=== PATIENT | female | born 1995 | race Caucasian/White ===

== ENCOUNTER 2016-11-10 23:11 | Emergency (ER) | payer OTHER ==
[~2016-11-10] VITALS: Ht 160 cm; Wt 81.6 kg
[~2016-11-10 23:11] MED LIST: FLUO20CA25; NORE-79; ONDA-42 SL
--- OUTSIDE RECORDS SUMMARY | 2016-11-10 23:19 | XMS REPORT | Continuity of Care Document ---
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 PCP Insurance Providers Payer Name Policy Number Subscriber Name Relationship [employer] [id number] Power Diaz 18 Self / Same As Patient Advance Directives Directive Response Recorded Date/Time Advance Directives Yes 02/03/15 4:09am Resuscitation Status Full Code 02/03/15 4:09am Problems Medical Problems Problem Onset Date Status Right sided abdominal pain Unknown Active Nausea Unknown Active Right sided abdominal pain Unknown Active Medications Medication Dose Route Sig Days/Qty Instructions Order Date Discontinued Date Status Ondansetron Hcl 4 Mg SL EVERY 4HRS PRN NAUSEA/VOMITING 10 Qty FOR NAUSEA AND VOMITING 02/03/15 Active Social History Social History Problem Response Recorded Date/Time Alcohol Use Occasionally Uses 02/03/2015 4:09am Recreational Drug Use No 02/03/2015 4:09am Recent Foreign Travel No 02/03/2015 4:00am Recent Infectious Disease Exposure No 02/03/2015 4:00am Hospitalization with Isolation Denies 02/03/2015 4:00am Sexually Transmitted Disease No 02/03/2015 4:09am HIV/AIDS No 02/03/2015 4:09am Smoking Status Never a Smoker 02/03/2015 4:09am Query Response Start Date Stop Date Smoking Status Never a Smoker Hospital Discharge Instructions No hospital discharge instructions. Plan of Care No plan of care. Functional Status No functional status results. Allergies, Adverse Reactions, Alerts Allergen Type Severity Reaction Status Last Updated Cephalexin Allergy Unknown Active 02/03/15 Immunizations Name Given Type Tetanus Booster (TDap) Unknown Historical Vital Signs Acute Vital Signs Vital Response Date/Time Temperature (Fahrenheit) 97.8 degrees F (97.6 - 99.5) Temperature (Calculated Celsius) 36.61178 degrees C (36.4 - 37.5) Temperature Source Temporal Pulse Rate (adult) 78 bpm (60 - 90) Respiratory Rate 18 bpm (12 - 24) O2 Sat by Pulse Oximetry 98 % (88 - 100) Blood Pressure 143/94 mm Hg Pain Pain Intensity 2 Height (Feet) 5 feet Height (Inches) 3 inches Height (Calculated Centimeters) 160.527657 cm Weight (Pounds) 170 pounds Weight (Calculated Kilograms) 77.678054 kilograms Calculated BMI 30.11 Results Laboratory Results Test Name Result Units Flags Reference Collection Date/Time Result Date/ Time Comments White Blood Count 11.1 10^3/uL H 4.3-11.0 02/03/2015 4:48am 02/03/2015 4: 59am Red Blood Count 3.73 10^6/uL L 4.35-5.85 02/03/2015 4:48am 02/03/2015 4: 59am Hemoglobin 11.3 G/DL L 11.5-16.0 02/03/2015 4:48am 02/03/2015 4:59am Hematocrit 33 % L 35-52 02/03/2015 4:48am 02/03/2015 4:59am Mean Corpuscular Volume 87 FL 80-99 02/03/2015 4:48am 02/03/2015 4: 59am Mean Corpuscular Hemoglobin 30 PG 25-34 02/03/2015 4:48am 02/03/2015 4: 59am Mean Corpuscular Hemoglobin Concent 35 G/DL 32-36 02/03/2015 4:48am 4:59am Red Cell Distribution Width 12.9 % 10.0-14.5 02/03/2015 4:48am 2014 4:59am Platelet Count 293 10^3/uL 130-400 02/03/2015 4:48am 02/03/2015 4:59am Mean Platelet Volume 9.9 FL 7.4-10.4 02/03/2015 4:48am 02/03/2015 4: 59am Neutrophils (%) (Auto) 61 % 42-75 02/03/2015 4:48am 02/03/2015 4:59am Lymphocytes (%) (Auto) 30 % 12-44 02/03/2015 4:48am 02/03/2015 4:59am Monocytes (%) (Auto) 9 % 0-12 02/03/2015 4:48am 02/03/2015 4:59am Eosinophils (%) (Auto) 1 % 0-10 02/03/2015 4:48am 02/03/2015 4:59am Basophils (%) (Auto) 0 % 0-10 02/03/2015 4:48am 02/03/2015 4:59am Neutrophils # (Auto) 6.7 X 10^3 1.8-7.8 02/03/2015 4:48am 02/03/2015 4: 59am Lymphocytes # (Auto) 3.3 X 10^3 1.0-4.0 02/03/2015 4:48am 02/03/2015 4: 59am Monocytes # (Auto) 1.0 X 10^3 0.0-1.0 02/03/2015 4:48am 02/03/2015 4: 59am Eosinophils # (Auto) 0.1 10^3/uL 0.0-0.3 02/03/2015 4:48am 02/03/2015 4 :59am Basophils # (Auto) 0.0 10^3/uL 0.0-0.1 02/03/2015 4:4802/03/2015 4: 59am Urine Color YELLOW 02/03/2015 4:1502/03/2015 4:35am Urine Clarity CLEAR 02/03/2015 4:02/03/2015 4:35am Urine pH 6 5-9 02/03/2015 4:02/03/2015 4:35am Urine Specific [place] 1.025 * 1.016-1.022 02/03/2015 4:2014 4:35am Urine Protein 1+ * NEGATIVE 02/03/2015 4:02/03/2015 4:35am Urine Glucose (UA) NEGATIVE NEGATIVE 02/03/2015 4:02/03/2015 4: 35am Urine RBC (Auto) NEGATIVE NEGATIVE 02/03/2015 4:15am 02/03/2015 4: 35am Urine Ketones NEGATIVE NEGATIVE 02/03/2015 4:15am 02/03/2015 4:35am Urine Nitrite NEGATIVE NEGATIVE 02/03/2015 4:15am 02/03/2015 4:35am Urine Bilirubin NEGATIVE NEGATIVE 02/03/2015 4:15am 02/03/2015 4: 35am Urine Urobilinogen NORMAL MG/DL NORMAL 02/03/2015 4:15am 02/03/2015 4: 35am Urine Leukocyte Esterase NEGATIVE NEGATIVE 02/03/2015 4:15am 2014 4:35am Urine RBC NONE /HPF 02/03/2015 4:15am 02/03/2015 4:35am Urine WBC NONE /HPF 02/03/2015 4:15am 02/03/2015 4:35am Urine Bacteria NEGATIVE /HPF 02/03/2015 4:15am 02/03/2015 4:35am Urine Squamous Epithelial Cells RARE /HPF 02/03/2015 4:15am 2014 4:35am Urine Crystals PRESENT /LPF * 02/03/2015 4:15am 02/03/2015 4:35am Urine Amorphous Sediment LARGE RAQUEL URATES /LPF * 02/03/2015 4:15am 4:35am Urine Casts NONE /LPF 02/03/2015 4:15am 02/03/2015 4:35am Urine Mucus NEGATIVE /LPF 02/03/2015 4:15am 02/03/2015 4:35am Urine Culture Indicated NO 02/03/2015 4:15am 02/03/2015 4:35am Sodium Level 140 MMOL/L 135-145 02/03/2015 4:48am 02/03/2015 5:18am Potassium Level 3.8 MMOL/L 3.6-5.0 02/03/2015 4:48am 02/03/2015 5:18am Chloride Level 106 MMOL/L 98-107 02/03/2015 4:48am 02/03/2015 5:18am Carbon Dioxide Level 22 MMOL/L 21-32 02/03/2015 4:48am 02/03/2015 5: 18am Blood Urea Nitrogen 13 MG/DL 7-18 02/03/2015 4:48am 02/03/2015 5:18am Creatinine 0.65 MG/DL 0.60-1.30 02/03/2015 4:48am 02/03/2015 5:18am BUN/Creatinine Ratio 20 02/03/2015 4:48am 02/03/2015 5:18am Estimat Glomerular Filtration Rate > 60 02/03/2015 4:48am 2014 5:18am GFR INTERPRETIVE DATA UNITS FOR ESTIMATED GFR (eGFR): mL/min/1.73 M2 REFERENCE RANGE FOR ESTIMATED GFR (eGFR) eGFR NORMAL eGFR >60 MODERATELY DECREASED eGFR 30-59 SEVERLY DECREASED eGFR 15-29 KIDNEY FAILURE <15 (OR DIALYSIS) Glucose Level 122 MG/DL H 70-105 02/03/2015 4:48am 02/03/2015 5:18am Calcium Level 9.3 MG/DL 8.5-10.1 02/03/2015 4:48am 02/03/2015 5:18am Total Bilirubin 0.7 MG/DL 0.1-1.0 02/03/2015 4:48am 02/03/2015 5:18am Alkaline Phosphatase 72 U/L 40-136 02/03/2015 4:48am 02/03/2015 5:18am Aspartate Amino Transf (AST/SGOT) 21 U/L 5-34 02/03/2015 4:48am 2014 5:18am Alanine Aminotransferase (ALT/SGPT) 56 U/L H 0-55 02/03/2015 4:48am 02/03 5:18am Total Protein 6.3 G/DL L 6.4-8.2 02/03/2015 4:48am 02/03/2015 5:18am Albumin 4.2 G/DL 3.2-4.5 02/03/2015 4:48am 02/03/2015 5:18am Lipase 11 U/L 8-78 02/03/2015 4:48am 02/03/2015 5:18am Procedures No known history of procedures. Encounters Encounter Location Date/Time Departed Emergency Room Via [facility] 02/03/15 3:44am Recent Diagnosis
[2016-11-10] MEDS ORDERED: METF500T8 (23:58)
[2016-11-10] MEDS ORDERED: HYDR-700 (23:58)
[2016-11-10] MEDS ORDERED: ARIP5TAB20 (23:58)
[2016-11-11 00:24] LABS: BASOPHILS % (AUTO) 0 % (0-10); EOSINOPHILS % (AUTO) 0 % (0-10); LYMPHOCYTES # (AUTO) 1.9 X 10^3 (1.0-4.0); LYMPHOCYTES % (AUTO) 38 % (12-44); MEAN CORPUSCULAR HEMOGLOBIN 31 PG (25-34); MEAN CORPUSCULAR HGB CONC 35 G/DL (32-36); MEAN CORPUSCULAR VOLUME 87 FL (80-99); MEAN PLATELET VOLUME 10.5 FL (7.4-10.4); MONOCYTES # (AUTO) 0.4 X 10^3 (0.0-1.0); MONOCYTES % (AUTO) 8 % (0-12); NEUTROPHILS # (AUTO) 2.7 X 10^3 (1.8-7.8); NEUTROPHILS % (AUTO) 54 % (42-75); PLATELET COUNT 236 10^3/uL (130-400); RED BLOOD COUNT 4.62 10^6/uL (4.35-5.85); RED CELL DISTRIBUTION WIDTH 12.5 % (10.0-14.5)
[2016-11-11 00:29] LABS: PROTHROMBIN TIME PATIENT 12.6 SEC (12.2-14.7)
[2016-11-11 00:47] LABS: BILIRUBIN,URINE NEGATIVE (NEGATIVE); KETONES,URINE 2+ (NEGATIVE); LEUKOCYTE ESTERASE ,URINE NEGATIVE (NEGATIVE); NITRITE,URINE POSITIVE (NEGATIVE); PH,URINE 6 (5-9); PROTEIN,URINE 2+ (NEGATIVE); UROBILINOGEN,URINE NORMAL (NORMAL)
[2016-11-11 00:51] LABS: ANION GAP 15 MMOL/L (5-14); BLOOD UREA NITROGEN 9 MG/DL (7-18); BUN/CREATININE RATIO 13; CALCIUM 9.5 MG/DL (8.5-10.1); CARBON DIOXIDE 21 MMOL/L (21-32); CHLORIDE 101 MMOL/L (98-107); GFR ESTIMATED > 60; GLUCOSE 303 MG/DL (70-105); SODIUM 137 MMOL/L (135-145)
[2016-11-11 00:51] LABS: SQUAMOUS EPITHELIAL CELL,UR 0-2 /HPF
[2016-11-11] MEDS ORDERED: RX-TRIMETH/SULFA. 160-800 MG (BACTRIM DS) TAB PPK#2 PO STA (01:01)
[2016-11-11] MEDS ORDERED: NITR-65 PO (01:01)
--- NOTE | 2016-11-11 01:01 | ED GU-Female ---
General Chief Complaint: -Female Stated Complaint: HEAVY VAG FLOW,HEADACHES Nursing Triage Note: Pt reports menses start late Sat night and today began heavier flow soaking center of overnight pads. Saw [facility] for a cold sx today and told them of problem and advised to come to ER if soaking 1 pad per hr. Quit BCP 2 mo ago; last menses at [facility]. Nursing Sepsis Screen: No Definite Risk Source: patient History of Present Illness Time seen by provider: 00:02 Initial Comments PT STATES HER PERIOD STARTED 11/08/16, AND HAS GONE THROUGH A TOTAL OF 5 PADS TODAY ( OVER NIGHT PADS ) , AND REPORTS THAT 3 OF THEM WERE "SOAKED" PT WAS ON OCP'S BUT DISCONTINUED THEM 2 MONTHS AGO. HAD A NORMAL PERIOD 10/12/16 PT C/O LOWER ABDOMINAL CRAMPING AND LOWER BACK ACHE PT ALSO C/O URINARY URGENCY AND FREQUENCY PT DENIES ANY SEXUAL ACTIVITY SINCE JULY PT WAS SEEN AT [facility] TODAY FOR URI SYMPTOMS FOR THE LAST COUPLE OF DAYS, AND HAD TEMP OF 99.2 THIS AM FLU SCREEN THERE WAS NEGATIVE NO RX'S GIVEN PCP: [facility] Allergies and Home Medications Allergies Coded Allergies: cephalexin (Verified Allergy, Unknown, 02/03/15) Home Medications Aripiprazole 5 Mg Tablet #30 (Reported) Fluoxetine HCl 20 Mg Capsule #90 (Reported) Hydroxyzine HCl 25 Mg Tablet #56 (Reported) Metformin HCl 500 Mg Tab.er.24h #90 (Reported) Nitrofurantoin Monohyd/M-Cryst 100 Mg Capsule #20 100 MG PO BID Prescribed by: TOÑITO MCMAHAN on 11/11/16 0101 Constitutional: see HPI EENTM: nose congestion see HPI Respiratory: see HPI cough Cardiovascular: no symptoms reported Gastrointestinal: see HPI abdominal painNo nausea, No vomiting Genitourinary: see HPI frequency flank pain : No LMP: Nov 08, 2016 Musculoskeletal: see HPI back pain Skin: no symptoms reported Psychiatric/Neurological: No Symptoms Reported Endocrine: No Symptoms Reported Hematologic/Lymphatic: No Symptoms Reported Past Cdmuxha-Nczvnv-Qdzvmv Hx Patient Social History Alcohol Use: Occasionally Uses Recreational Drug Use: No Smoking Status: Never a Smoker Recent Foreign Travel: No Contact w/Someone Who Travel: No Recent Infectious Disease Expo: No Recent Hopitalizations: No Physical Abuse Screen: No Sexual Abuse: No Immunizations Up To Date Tetanus Booster (TDap): Unknown PED Vaccines UTD: Yes Date of Influenza Vaccine: Jul 19, 2016 Seasonal Allergies Seasonal Allergies: Yes Surgeries HX Surgeries: Yes (LEFT ACL REPAIR, WISDOM TEETH REMOVED) Surgeries: Orthopedic Respiratory Hx Respiratory Disorders: No Cardiovascular Hx Cardiac Disorders: No Neurological Hx Neurological Disorders: No Reproductive System : No Hx Reproductive Disorders: No Sexually Transmitted Disease: No HIV/AIDS: No Female Reproductive Disorders: Denies Genitourinary Hx Genitourinary Disorders: No Gastrointestinal Hx Gastrointestinal Disorders: Yes ("Fatty Liver") Gastrointestinal Disorders: Liver Disease/Jaundice Musculoskeletal Hx Musculoskeletal Disorders: No Endocrine Hx Endocrine Disorders: Yes (DX 08/2016) Endocrine Disorders: Diabetes, Non-Insulin dep HEENT HX ENT Disorders: No Cancer Hx Cancer: No Psychosocial Hx Psychiatric Problems: Yes Behavioral Health Disorders: Anxiety, Depression Integumentary HX Skin/Integumentary Disorder: No Blood Transfusions Hx Blood Disorders: No Adverse Reaction to a Blood Tr: No Family Medical History Significant Family History: Hypertension Physical Exam Vital Signs Vital Sign - Last 12Hours 11/10/16 23:39 Temp 97.2 Pulse 91 Resp 20 B/P 141/100 Pulse Ox 97 O2 Delivery Room Air Capillary Refill : Less Than 3 Seconds General Appearance: WD/WN no apparent distress HEENT: PERRL/EOMI other (NASAL CONGESTION, CLEAR RHINORRHEA) Neck: normal inspection Cardiovascular: regular rate, rhythm Respiratory: normal breath sounds no respiratory distress no accessory muscle use Gastrointestinal: normal bowel sounds soft tenderness (MILD SUPRAPUBIC) Back: no CVA tenderness other (MILD DIFFUSE LOWER BACK TENDERNESS) Extremities: normal inspection 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 nml as tested no motor/sensory deficits alert oriented x 3 Skin: normal color warm/dry Progress/Results/Core Measures Results/Orders Lab Results Laboratory Tests Test 11/11/16 00:09 11/11/16 00:34 Range/Units Activated Partial Thromboplast Time 26 24-35 SEC Anion Gap 15 H 5-14 MMOL/L BUN/Creatinine Ratio 13 Basophils # (Auto) 0.0 0.0-0.1 10^3/uL Basophils (%) (Auto) 0 0-10 % Blood Urea Nitrogen 9 7-18 MG/DL Calcium Level 9.5 8.5-10.1 MG/DL Carbon Dioxide Level 21 21-32 MMOL/L Chloride Level 101 98-107 MMOL/L Creatinine 0.70 0.60-1.30 MG/DL Eosinophils # (Auto) 0.0 0.0-0.3 10^3/uL Eosinophils (%) (Auto) 0 0-10 % Estimat Glomerular Filtration Rate > 60 Glucose Level 303 H 70-105 MG/DL Hematocrit 40 35-52 % Hemoglobin 14.1 11.5-16.0 G/DL INR Comment 1.0 0.8-1.4 Lymphocytes # (Auto) 1.9 1.0-4.0 X 10^3 Lymphocytes (%) (Auto) 38 12-44 % Mean Corpuscular Hemoglobin 31 25-34 PG Mean Corpuscular Hemoglobin Concent 35 32-36 G/DL Mean Corpuscular Volume 87 80-99 FL Mean Platelet Volume 10.5 H 7.4-10.4 FL Monocytes # (Auto) 0.4 0.0-1.0 X 10^3 Monocytes (%) (Auto) 8 0-12 % Neutrophils # (Auto) 2.7 1.8-7.8 X 10^3 Neutrophils (%) (Auto) 54 42-75 % Platelet Count 236 130-400 10^3/uL Potassium Level 4.0 3.6-5.0 MMOL/L Prothrombin Time 12.6 12.2-14.7 SEC Red Blood Count 4.62 4.35-5.85 10^6/uL Red Cell Distribution Width 12.5 10.0-14.5 % Serum Test, Qualitative NEGATIVE NEGATIVE Sodium Level 137 135-145 MMOL/L White Blood Count 5.0 4.3-11.0 10^3/uL Urine Bacteria TRACE /HPF Urine Bilirubin NEGATIVE NEGATIVE Urine Casts NONE /LPF Urine Clarity CLEAR Urine Color YELLOW Urine Crystals NONE /LPF Urine Culture Indicated YES Urine Glucose (UA) 4+ H NEGATIVE Urine Ketones 2+ H NEGATIVE Urine Leukocyte Esterase NEGATIVE NEGATIVE Urine Mucus SMALL H /LPF Urine Nitrite POSITIVE H NEGATIVE Urine Protein 2+ H NEGATIVE Urine RBC RARE /HPF Urine RBC (Auto) 1+ H NEGATIVE Urine Specific [place] 1.020 1.016-1.022 Urine Squamous Epithelial Cells 0-2 /HPF Urine Urobilinogen NORMAL NORMAL MG/DL Urine WBC NONE /HPF Urine pH 6 5-9 My Orders Orders-TOÑITO MCMAHAN DO Basic Metabolic Panel (11/11/16 00:02) Cbc With Automated Diff (11/11/16 00:02) Hcg,Qualitative Serum (11/11/16 00:02) Protime With Inr (11/11/16 00:02) Partial Thromboplastin Time (11/11/16 00:02) Ua Culture If Indicated (11/11/16 00:21) Urine Culture (11/11/16 00:34) Rx-Trimeth/Sulfameth Ds Tab (Rx-Bactrim/ (11/11/16 01:01) Vital Signs/I&O Vital Sign - Last 12Hours 11/10/16 23:39 Temp 97.2 Pulse 91 Resp 20 B/P 141/100 Pulse Ox 97 O2 Delivery Room Air Blood Pressure Mean: 114 Progress Note : Progress Note PT DID NOT GO THROUGH ANY PADS DURING ER STAY--ONLY A 3 INCH SPOT OF BLOOD IN CENTER OF A REGULAR PAD Departure Impression Impression: Primary Impression: Urinary tract infection Additional Impression: MENSTRUAL FLOW HEAVIER THAN USUAL Disposition: 01 HOME, SELF-CARE Condition: Stable Departure-Patient Inst. Referrals: [facility] (PCP/Family) Primary Care Physician Patient Instructions: IRREGULAR VAGINAL BLEEDING, Urinary Tract Infection, Adult (DC) Add. Discharge Instructions: TAKE YOUR MEDICATIONS PRESCRIBED LOTS OF CLEAR LIQUIDS TYLENOL AND MOTRIN NEEDED FOR PAIN OR FEVER FOLLOW UP WITH [facility] OR [facility] IN 3-4 DAYS IF NO BETTER All discharge instructions reviewed with patient and/or family. Voiced understanding. Scripts Nitrofurantoin Monohyd/M-Cryst (Macrobid 100 mg Capsule)100 Mg [id number] Mg PO BID #20 CAP Prov:TOÑITO MCMAHAN DO 11/11/16 TOÑITO MCMAHAN DO Nov 11, 2016 01:01
[2016-11-11 01:11] VITALS: BP 136/90
== END 2016-11-11 01:11 | disposition home or self-care (01) ==
LOC: EDUNIT# 23:11 → ER 23:15
DX: N39.0 Urinary tract infection, site not specified (principal); N92.0 Excessive and frequent menstruation with regular cycle; E11.9 Type 2 diabetes mellitus without complications; Z79.84 Long term (current) use of oral hypoglycemic drugs; Z79.899 Other long term (current) drug therapy
CPT/HCPCS: 36415; 51701; 80048; 81000; 84703; 85025; 85610; 85730; 87088; 99284

== ENCOUNTER 2017-07-31 19:31 | Emergency (ER) | payer OTHER ==
[~2017-07-31] VITALS: Ht 160 cm; Wt 81.6 kg
[~2017-07-31 19:31] MED LIST changes: +ARIP5TAB20; +HYDR-700; +METF500T8; +NITR-65 PO
--- NOTE | 2017-07-31 19:58 | ED Psychosocial ---
General Chief Complaint: Psych/Social Disorder Stated Complaint: SUICIDAL Source: patient Exam Limitations: no limitations History of Present Illness Time seen by provider: 19:55 Initial Comments To ER with reports of suicidality. She states that she has felt this way for "not very long" but it became worse today after a breakup with her recent boyfriend. She states that that in combination with the stresses of being a student such as finances and being away from home in [place] she is nearly over the edge. She states that she did have a plan to hang herself and that she has formerly looked for a gun in her house. She is supposed to take fluoxetine and Abilify but states that she doesn't simply because she forgets. She denies any alcohol or drug use. She has had to be hospitalized inpatient for psychiatric help before at [facility] in [place]. 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 Timing/Duration: just prior to arrival Severity: moderate Associated Symptoms: anxiety, suicidal ideation Allergies and Home Medications Allergies Coded Allergies: cephalexin (Verified Allergy, Unknown, 07/31/17) Home Medications Aripiprazole 5 Mg Tablet, #30 (Reported) Fluoxetine HCl 20 Mg Capsule, #90 (Reported) Hydroxyzine HCl 25 Mg Tablet, #56 (Reported) Metformin HCl 500 Mg Tab.er.24h, #90 (Reported) Nitrofurantoin Monohyd/M-Cryst 100 Mg Capsule, 100 MG PO BID, #20 Prescribed by: TOÑITO MCMAHAN on 11/11/16 0101 Constitutional: see HPI EENTM: see HPI Respiratory: no symptoms reported Cardiovascular: no symptoms reported Genitourinary: no symptoms reported Musculoskeletal: no symptoms reported Skin: no symptoms reported Psychiatric/Neurological: See HPI, Depressed, Emotional Problems Past Spovxte-Txebww-Dxnjwe Hx Patient Social History Recent Foreign Travel: No Contact w/Someone Who Travel: No Recent Hopitalizations: No Immunizations Up To Date Tetanus Booster (TDap): Unknown PED Vaccines UTD: Yes Date of Influenza Vaccine: Jul 19, 2016 Seasonal Allergies Seasonal Allergies: Yes Surgeries Surgeries: Orthopedic Reproductive System Hx Reproductive Disorders: No Sexually Transmitted Disease: No HIV/AIDS: No Female Reproductive Disorders: Denies Gastrointestinal Gastrointestinal Disorders: Liver Disease/Jaundice Endocrine Endocrine Disorders: Diabetes, Non-Insulin dep Psychosocial Behavioral Health Disorders: Anxiety, Depression Blood Transfusions Adverse Reaction to a Blood Tr: No Family Medical History Significant Family History: Hypertension Physical Exam Vital Signs Vital Sign - Last 12Hours 07/31/17 19:45 Temp 98.0 Pulse 82 Resp 18 B/P (MAP) 114/50 Pulse Ox 99 Capillary Refill : General Appearance: WD/WN, no apparent distress, other (tearful, crying but very pleasant and very cooperative) HEENT: PERRL/EOMI, normal ENT inspection, TMs normal Neck: non-tender, full range of motion Respiratory: normal breath sounds, no respiratory distress, no accessory muscle use Cardiovascular: regular rate, rhythm, no murmur Gastrointestinal: normal bowel sounds, non tender, soft Extremities: normal range of motion, non-tender Neurologic/Psychiatric: alert, normal mood/affect, abnormal cerebellar tests Appearance/Memory: appropriate appearance, appropriate insight, neat, no memory impairment, other (clean) Behavior/Eye Contact: cooperative, good eye contact, normal speech Thoughts/Hallucinations: normal thought pattern, no apparent hallucination Skin: normal color, warm/dry Progress/Results/Core Measures Results/Orders Lab Results Laboratory Tests Test 07/31/17 19:56 Range/Units White Blood Count 7.3 4.3-11.0 10^3/uL Red Blood Count 4.91 4.35-5.85 10^6/uL Hemoglobin 14.6 11.5-16.0 G/DL Hematocrit 43 35-52 % Mean Corpuscular Volume 87 80-99 FL Mean Corpuscular Hemoglobin 30 25-34 PG Mean Corpuscular Hemoglobin Concent 34 32-36 G/DL Red Cell Distribution Width 12.5 10.0-14.5 % Platelet Count 323 130-400 10^3/uL Mean Platelet Volume 10.3 7.4-10.4 FL Neutrophils (%) (Auto) 66 42-75 % Lymphocytes (%) (Auto) 26 12-44 % Monocytes (%) (Auto) 6 0-12 % Eosinophils (%) (Auto) 1 0-10 % Basophils (%) (Auto) 0 0-10 % Neutrophils # (Auto) 4.8 1.8-7.8 X 10^3 Lymphocytes # (Auto) 1.9 1.0-4.0 X 10^3 Monocytes # (Auto) 0.5 0.0-1.0 X 10^3 Eosinophils # (Auto) 0.1 0.0-0.3 10^3/uL Basophils # (Auto) 0.0 0.0-0.1 10^3/uL Sodium Level 137 135-145 MMOL/L Potassium Level 3.8 3.6-5.0 MMOL/L Chloride Level 101 98-107 MMOL/L Carbon Dioxide Level 20 L 21-32 MMOL/L Anion Gap 16 H 5-14 MMOL/L Blood Urea Nitrogen 7 7-18 MG/DL Creatinine 0.61 0.60-1.30 MG/DL Estimat Glomerular Filtration Rate > 60 BUN/Creatinine Ratio 11 Glucose Level 160 H 70-105 MG/DL Calcium Level 10.2 H 8.5-10.1 MG/DL Total Bilirubin 1.8 H 0.1-1.0 MG/DL Aspartate Amino Transf (AST/SGOT) 188 H 5-34 U/L Alanine Aminotransferase (ALT/SGPT) 132 H 0-55 U/L Alkaline Phosphatase 79 40-136 U/L Total Protein 7.8 6.4-8.2 GM/DL Albumin 4.7 H 3.2-4.5 GM/DL Thyroid Stimulating Hormone (TSH) 1.88 0.35-4.94 UIU/ML Free Thyroxine 1.04 0.70-1.48 NG/DL Serum Test, Qualitative NEGATIVE NEGATIVE Salicylates Level < 5.0 L 5.0-20.0 MG/DL Acetaminophen Level < 10 L 10-30 UG/ML Serum Alcohol < 10 <10 MG/DL My Orders Orders - RASHAD BEAN APRN Ua Culture If Indicated (07/31/17 19:37) Cbc With Automated Diff (07/31/17 19:37) Hcg,Qualitative Serum (07/31/17 19:37) Thyroid Stimulating Hormone (07/31/17 19:37) Free T4 (Free Thyroxine) (07/31/17:37) Ekg Tracing (07/31/17:37) Salicylate (07/31/17 19:37) Acetaminophen (07/31/17 19:37) Alcohol (07/31/17 19:37) Comprehensive Metabolic Panel (07/31/17 19:37) Drug Screen Stat (Urine) (07/31/17 19:55) Vital Signs/I&O Vital Sign - Last 12Hours 07/31/17 19:45 Temp 98.0 Pulse 82 Resp 18 B/P (MAP) 114/50 Pulse Ox 99 Departure Communication (Admissions) Progress Notes 2102-I did discuss with [facility] in [place] for the patient's request. They are unable to accept the patient tonight. Patient herself would like to go inpatient to a hospital tonight but agrees that a suitable alternative would be for her parents to come down and get her. I did discuss the case with her parents per Mara's request. Mother states that Rohan is a bit immature when it comes to handling her emotions gets very upset with the breakup's. She's been inpatient hospitalized several times and her psychiatrist has told her that she must quit going to the emergency room anytime something bad happens in her life and that she needs to learn to deal with her emotions. Additionally, Mara I states that she's not been taking her fluoxetine or Abilify. Mother states that she would be happy to come get the patient accompanied by her father and that she will sleep in Mara's room tonight and will not let her out of her sight. It would seem that the recent breakup which Mara states is her major stressor, accompanied by financial stressors and loneliness from her parents that having her parents come get her would alleviate the stressors in the short-term. She could follow up in the outpatient setting and she is agreeable to this. 2146-awaiting parents to arrive. Sitting in the room visiting with a variety of her friends. Smiling and laughing and interacting well. Impression Impression: Primary Impression: Depression Disposition: 01 HOME, SELF-CARE Condition: Stable Departure-Patient Inst. Decision time for Depature: 21:06 Referrals: [facility] (PCP/Family) Primary Care Physician Patient Instructions: Depression Add. Discharge Instructions: Follow-up with your psychologist or psychiatrist on Thursday or as soon as possible 2. Return to the emergency room for any concerns. You must restart your medications (fluoxetine/Abilify) and take these faithfully RASHAD BEAN APRN Jul 31, 2017 19:58
[2017-07-31 20:13] LABS: BASOPHILS % (AUTO) 0 % (0-10); EOSINOPHILS # (AUTO) 0.1 10^3/uL (0.0-0.3); EOSINOPHILS % (AUTO) 1 % (0-10); LYMPHOCYTES # (AUTO) 1.9 X 10^3 (1.0-4.0); LYMPHOCYTES % (AUTO) 26 % (12-44); MEAN CORPUSCULAR HEMOGLOBIN 30 PG (25-34); MEAN CORPUSCULAR HGB CONC 34 G/DL (32-36); MEAN CORPUSCULAR VOLUME 87 FL (80-99); MEAN PLATELET VOLUME 10.3 FL (7.4-10.4); MONOCYTES # (AUTO) 0.5 X 10^3 (0.0-1.0); MONOCYTES % (AUTO) 6 % (0-12); NEUTROPHILS # (AUTO) 4.8 X 10^3 (1.8-7.8); NEUTROPHILS % (AUTO) 66 % (42-75); PLATELET COUNT 323 10^3/uL (130-400); RED BLOOD COUNT 4.91 10^6/uL (4.35-5.85); RED CELL DISTRIBUTION WIDTH 12.5 % (10.0-14.5); WHITE BLOOD COUNT 7.3 10^3/uL (4.3-11.0)
[2017-07-31 20:40] LABS: ALANINE AMINOTRANSFERASE 132 U/L (0-55); ALBUMIN 4.7 GM/DL (3.2-4.5); ALCOHOL < 10 MG/DL (<10); ANION GAP 16 MMOL/L (5-14); ASPARTATE AMINO TRANSFERASE 188 U/L (5-34); BILIRUBIN,TOTAL 1.8 MG/DL (0.1-1.0); BLOOD UREA NITROGEN 7 MG/DL (7-18); BUN/CREATININE RATIO 11; CALCIUM 10.2 MG/DL (8.5-10.1); CARBON DIOXIDE 20 MMOL/L (21-32); CHLORIDE 101 MMOL/L (98-107); CREATININE SERUM 0.61 MG/DL (0.60-1.30); GFR ESTIMATED > 60; GLUCOSE 160 MG/DL (70-105); POTASSIUM 3.8 MMOL/L (3.6-5.0); SALICYLATE < 5.0 MG/DL (5.0-20.0); SODIUM 137 MMOL/L (135-145); TOTAL PROTEIN 7.8 GM/DL (6.4-8.2)
[2017-07-31 20:42] LABS: ACETAMINOPHEN < 10 UG/ML (10-30)
[2017-07-31 21:03] LABS: THYROID STIMULATING HORMONE 1.88 UIU/ML (0.35-4.94)
--- OUTSIDE RECORDS SUMMARY | 2017-07-31 21:43 | XMS REPORT ---
Author Author ANGELY LAM Organization [facility] Address [address] [place] [address] Care Team Providers Care Livestock Exhibitor Name Role Phone ANGELY LAM Unavailable PROBLEMS Type Condition ICD9-CM Code UVE70-DG Code Onset Dates Condition Status SNOMED Code Problem Type 2 diabetes mellitus without complication, without long-term current use of insulin E11.9 Active 342649914 Problem Generalized anxiety disorder F41.1 Active 69055677 Problem Major depressive disorder, recurrent episode, moderate F33.1 Active 323076988 Problem Depressive disorder, not elsewhere classified F32.9 Active [id number] ALLERGIES No Information SOCIAL HISTORY Never Assessed PLAN OF CARE Activity Details Follow Up Next Available and the call in list Reason: Follow-up VITAL SIGNS MEDICATIONS Medication Instructions Dosage Frequency Start Date End Date Duration Status Prozac 20 MG Orally Once a day 1 capsule in the morning 24h Active Trazodone HCl Active Metformin HCl 500 MG Orally Twice a day 1 tablet with meals 12h Active Abilify 5 MG Orally Once a day 1 tablet 24h Active RESULTS No Results PROCEDURES Procedure Date Ordered Result Body Site Psychotherapy, patient &/family, 45 minutes, established patient January 06, 2017 IMMUNIZATIONS No Known Immunizations MEDICAL (GENERAL) HISTORY Type Description Date Medical History DM with last reported A1C of 9 Surgical History ACL repair 2011 Surgical History wisdom teeth extraction 2012
[2017-07-31 23:05] LABS: KETONES,URINE 3+ (NEGATIVE); LEUKOCYTE ESTERASE ,URINE 1+ (NEGATIVE); NITRITE,URINE NEGATIVE (NEGATIVE); PH,URINE 6 (5-9); PROTEIN,URINE 3+ (NEGATIVE); UROBILINOGEN,URINE 1 MG/DL (NORMAL)
[2017-07-31 23:12] VITALS: BP 110/70
[2017-07-31 23:19] LABS: BILIRUBIN,URINE 1+ (NEGATIVE)
== END 2017-07-31 23:12 | disposition home or self-care (01) ==
LOC: EDUNIT# 19:31 → ER 19:32
DX: F32.9 Major depressive disorder, single episode, unspecified (principal); E11.9 Type 2 diabetes mellitus without complications; F41.9 Anxiety disorder, unspecified; Z79.84 Long term (current) use of oral hypoglycemic drugs; Z87.19 Personal history of other diseases of the digestive system
CPT/HCPCS: 36415; 80053; 80306; 80320; 80329; 81000; 84439; 84443; 84703; 85025; 87088; 87186; 93005

== ENCOUNTER → 2022-02-14 | Outpatient (CLI) | payer BC ==
[~2022-02-14] MED LIST changes: -ARIP5TAB20; +ARIP5TAB57; -FLUO20CA25; +FLUO20CA48; +METF-865; -METF500T8
[2022-02-14 09:52] LABS: BASOPHILS % (AUTO) 1 % (0-10); EOSINOPHILS % (AUTO) 1 % (0-10); HEMATOCRIT 43 % (35-52); HEMOGLOBIN 14.6 g/dL (11.5-16.0); LYMPHOCYTES # (AUTO) 1.8 10^3/uL (1.0-4.0); LYMPHOCYTES % (AUTO) 30 % (12-44); MEAN CORPUSCULAR HEMOGLOBIN 30 pg (25-34); MEAN CORPUSCULAR HGB CONC 34 g/dL (32-36); MEAN CORPUSCULAR VOLUME 88 fL (80-99); MEAN PLATELET VOLUME 9.7 fL (9.0-12.2); MONOCYTES # (AUTO) 0.4 10^3/uL (0.0-1.0); MONOCYTES % (AUTO) 6 % (0-12); NEUTROPHILS # (AUTO) 3.7 10^3/uL (1.8-7.8); NEUTROPHILS % (AUTO) 62 % (42-75); PLATELET COUNT 295 10^3/uL (130-400)
[2022-02-14 11:27] LABS: POTASSIUM 3.5 MMOL/L (3.6-5.0); SODIUM 137 MMOL/L (135-145)
[2022-02-14 11:28] LABS: ALANINE AMINOTRANSFERASE 137 U/L (0-55); ALKALINE PHOSPHATASE 134 U/L (40-136); BILIRUBIN,TOTAL 0.5 MG/DL (0.1-1.0); BUN/CREATININE RATIO 13; CALCIUM 9.4 MG/DL (8.5-10.1); CARBON DIOXIDE 24 MMOL/L (21-32); CHLORIDE 100 MMOL/L (98-107); CREATININE SERUM 0.39 MG/DL (0.60-1.30); GFR ESTIMATED 140; GLUCOSE 351 MG/DL (70-105); TOTAL PROTEIN 6.8 GM/DL (6.4-8.2)
[2022-02-14 11:29] LABS: ALBUMIN 4.4 GM/DL (3.2-4.5)
== END ==
LOC: LAB FS 09:24
PROVIDERS: ATTEND Nurse Practitioner Family
DX: Z13.220 Encounter for screening for lipoid disorders (principal); N92.6 Irregular menstruation, unspecified; E03.9 Hypothyroidism, unspecified; E11.9 Type 2 diabetes mellitus without complications
CPT/HCPCS: 36415; 80053; 82043; 83036; 84443; 84702; 85025

== ENCOUNTER 2022-03-07 18:38 | Emergency (ER) | payer BC, OTHER ==
[~2022-03-07] VITALS: Ht 160 cm; Wt 71.7 kg
--- NOTE | 2022-03-07 18:58 | ED Fall/Injury ---
General Chief Complaint: Upper Extremity Stated Complaint: FALL RIGHT ARM/UPPER BACK PAIN Source: patient History of Present Illness Date Seen by Provider: March 07, 2022 Time Seen by Provider: 18:58 Initial Comments 26-year-old female presenting with pain to her right arm and left knee after she had slipped on the floor at home. She was sleeping on the couch and when she got up she was just in stocking feet. Her feet slipped on the floor and she fell on her right arm. She denies hitting her head or losing consciousness. She denies having nausea, vomiting, change in vision, drainage from ears, drainage from nose. Since she was having so much pain she came to the emergency department to be evaluated. She did not try taking anything for pain prior to coming in to the emergency department. Occurred: this afternoon Severity: severe Injuries/Pain Location: upper extremity (Right upper extremity), lower extremity (Left knee) Context: slipped Loss of Consciousness: no loss of consciousness Modifying Factors: Worse With Movement Associated Symptoms (Fall): No Abdominal Pain, No Chest Pain, No Confusion, No Dizziness, No Headache, No Lightheadedness, No Muscle Spasms, No Nausea/Vomiting, No Neck Pain, No Ringing in Ears, No Seizures, No Shortness of Air, No Slurred Speech, No Trouble Walking, No Vision Changes Allergies and Home Medications Allergies Coded Allergies: cephalexin (Verified Allergy, Unknown, 07/31/17) Patient Home Medication List Home Medication List Reviewed: Yes Aripiprazole (Aripiprazole) 5 Mg Tablet, (Reported) Entered as Reported by: QI ROPER on 11/10/162357 Fluoxetine HCl (Fluoxetine HCl) 20 Mg Capsule, (Reported) Entered as Reported by: JANET JACKSON on 12/14/15 0128 Hydroxyzine HCl (Hydroxyzine HCl) 25 Mg Tablet, (Reported) Entered as Reported by: QI ROPER on 11/10/162357 Metformin HCl (Metformin HCl ER) 500 Mg Tab.er.24h, (Reported) Entered as Reported by: IQ ROPER on 11/10/162357 Nitrofurantoin Monohyd/M-Cryst (Macrobid 100 mg Capsule) 100 Mg Capsule, 100 MG PO BID Prescribed by: TOÑITO MCMAHAN on 11/11/16 0101 Review of Systems Review of Systems Constitutional: No chills, No dizziness, No fever Eyes: Denies Blurred Vision, Denies Vision Changes Ears, Nose, Mouth, Throat: see HPI Respiratory: no symptoms reported Cardiovascular: no symptoms reported Gastrointestinal: no symptoms reported Musculoskeletal: no symptoms reported Skin: no symptoms reported Past Upldzjf-Zgjoyi-Yduubi Hx Immunizations Up To Date Tetanus Booster (TDap): Unknown PED Vaccines UTD: Yes Seasonal Allergies Seasonal Allergies: Yes Past Medical History Surgeries: Yes (LEFT ACL REPAIR, WISDOM TEETH REMOVED) Orthopedic Respiratory: No Cardiac: No Neurological: No Reproductive Disorders: No Female Reproductive Disorders: Denies Sexually Transmitted Disease: No HIV/AIDS: No Gastrointestinal: Yes ("Fatty Liver") Liver Disease/Jaundice Musculoskeletal: No Endocrine: Yes (DX 08/2016) Diabetes, Non-Insulin dep Cancer: No Psychosocial: Yes Anxiety, Suicide Attempts, Depression Integumentary: No Blood Disorders: No Adverse Reaction/Blood Tranf: No Family Medical History Hypertension Physical Exam Vital Signs Vital Signs - First Documented 03/07/22 18:48 Temp 36.8 Pulse 90 Resp 18 B/P (MAP) 128/93 (105) Pulse Ox 98 O2 Delivery Room Air Capillary Refill : Height, Weight, BMI Height: 5'3" Weight: 180lbs. oz. 81.091202no; 31.17 BMI Method:Stated General Appearance: WD/WN, no apparent distress HEENT: PERRL/EOMI, normal ENT inspection, TMs normal, pharynx normal Neck: non-tender, full range of motion, supple, normal inspection Cardiovascular: normal peripheral pulses, regular rate, rhythm Respiratory: chest non-tender, lungs clear, no respiratory distress, no accessory muscle use Gastrointestinal: non tender, soft Extremities: normal range of motion, normal capillary refill, other (Tender palpation over the right elbow and right hand. 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, alert, oriented x 3 Skin: normal color, warm/dry [place] Coma Score Best Eye Response: (4) Open Spontaneously Best Verbal Response: (5) Oriented Best Motor Response: (6) Obeys Commands Daquan Total: 15 Progress/Results/Core Measures Results/Orders My Orders Orders - GIRMA FERNANDEZ MD Ct Head/Cervical Spine Wo (03/07/22 18:56) Shoulder 3 View Right (03/07/22 18:56) Forearm 2 View Right (03/07/22 18:56) Hand 3 View Right (03/07/22 18:56) Knee 3 View Left (03/07/22 18:56) Ice: Apply To Affected Area (03/07/22 18:56) Ibuprofen Tablet (Motrin Tablet) (03/07/22 19:30) Ondansetron Oral Dissolve Tab (Zofran (03/07/22 19:31) Vital Signs/I&O 03/07/22 03/07/22 18:48 20:06 Temp 36.8 36.8 Pulse 90 90 Resp 18 18 B/P (MAP) 128/93 (105) 128/93 Pulse Ox 98 98 O2 Delivery Room Air Room Air Progress Progress Note #1: Progress Note Since she was unsure if she hit her head and is having nausea and feels like she is not right will obtain CT scan of the head cervical spine. Order x-rays of the right shoulder, forearm, hand and left knee. Patient asked for pain medicine when she returned from x-ray so a dose of ibuprofen and Zofran were ordered. Progress Note #2: Progress Note No acute intracranial process or cervical spine fracture noted on radiology read of CT. Plain film x-rays did not demonstrate any acute fracture or dislocation of the right hand, elbow, wrist, forearm, left knee. Counseled patient on findings and follow-up on results. Advised about follow-up and return precautions. Diagnostic Imaging Diagonstic Imaging: CT Plain Films/CT/US/NM/MRI: c-spine, head Comments [facility] [place] NAME: POWER IBANEZ Nida [facility] REC#: [id number] PT STATUS: REG ER : 1995 PHYSICIAN: GIRMA FERNANDEZ MD ADMIT DATE: 03/07/22/ER FS Signed Date of Exam:03/07/22 CT HEAD/CERVICAL SPINE WO EXAMINATION: CT head and CT cervical spine without contrast. TECHNIQUE: Multiple contiguous axial images were obtained through the brain and cervical spine without the use of intravenous contrast. Sagittal and coronal reformations through the cervical spine were then performed. All CT scans use one or more of the following dose optimizing techniques: automated exposure control, MA and/or KvP adjustment based on patient size and exam type or iterative reconstruction. HISTORY: Head and neck pain after fall. COMPARISON: None available. FINDINGS: HEAD: The ventricles and sulci are normal. No abnormal attenuation of brain parenchyma is present. No acute intracranial hemorrhage or abnormal extra-axial fluid collections are present. No hyperdense vessel. The calvarium is intact. The mastoid air cells are clear. The visualized paranasal sinuses are clear. The orbits are normal. C-SPINE: Vertebral body height and alignment are preserved. No acute fracture, dislocation or destructive osseous process. No significant facet hypertrophy. No significant central canal or neuroforaminal stenosis. The paraspinous soft tissues are normal. The visualized thyroid gland is normal. The visualized lung apices are normal. IMPRESSION: 1. No acute intracranial abnormality. 2. No cervical spine fracture. Dictated by: Dictated on workstation # [id number] Dict: 03/07/221928 Trans: 03/07/221938 PJE [id number] Interpreted by: MARIA ANTONIA TORRES DO Electronically signed by: MARIA ANTONIA TORRES DO 03/07/221938 Reviewed: Reviewed by Me Elizaldenscassy Imaging: Xray Plain Films/CT/US/NM/MRI: other (Shoulder) Comments [facility] [place] NAME: POWER IBANEZ [facility] REC#: [id number] PT STATUS: REG ER : 1995 PHYSICIAN: GIRMA FERNANDEZ MD ADMIT DATE: 03/07/22/ER FS Signed Date of Exam:03/07/22 SHOULDER 3 VIEW RIGHT HISTORY: Pain in the right shoulder after fall. TECHNIQUE: 3 views of the right shoulder. COMPARISON: None. FINDINGS: No acute fracture or dislocation is seen in the right shoulder. Alignment appears normal. Joint spaces are preserved. IMPRESSION: No acute osseous abnormality is seen in the right shoulder. Dictated by: Dictated on workstation # [id number] Dict: 03/07/221932 Trans: 03/07/222000 PJE [id number] Interpreted by: LALA MCINTYRE MD Electronically signed by: LALA MCINTYRE MD 03/07/222000 Reviewed: Reviewed by Me Diagonstic Imaging: Xray Plain Films/CT/US/NM/MRI: knee Comments [facility] [place] [place] NAME: POWER IBANEZ [facility] REC#: [id number] PT STATUS: REG ER : 1995 PHYSICIAN: GIRMA FERNANDEZ MD ADMIT DATE: 03/07/22/ER FS Signed Date of Exam:03/07/22 KNEE 3 VIEW LEFT HISTORY: Pain in the left knee after fall. TECHNIQUE: 3 views of the left knee. COMPARISON: None. FINDINGS: No acute fracture or dislocation is seen in the left knee. Alignment appears normal. Joint spaces are preserved. There appear to be postsurgical changes in the left knee. No significant joint effusion is seen. IMPRESSION: No acute osseous abnormality is seen in the left knee. Dictated by: Dictated on workstation # [id number] Dict: 03/07/221932 Trans: 03/07/221999 PJE [id number] Interpreted by: LALA MCINTYRE MD Electronically signed by: LALA MCINTYRE MD 03/07/221999 Reviewed: Reviewed by Wy Diagonstic Imaging: Xray Plain Films/CT/US/NM/MRI: hand Comments [facility] [place] [place] NAME: POWER IBANEZ [facility] REC#: [id number] PT STATUS: REG ER : 1995 PHYSICIAN: GIRMA FERNANDEZ MD ADMIT DATE: 03/07/22/ER FS Signed Date of Exam:03/07/22 HAND 3 VIEW RIGHT HISTORY: Pain in the right hand and wrist after fall. TECHNIQUE: 3 views of the right hand. COMPARISON: None. FINDINGS: No acute fracture or dislocation is seen in the right hand. Alignment appears normal. Joint spaces are preserved. No cortical erosions are seen. IMPRESSION: No acute osseous abnormality is seen in the right hand. Dictated by: Dictated on workstation # [id number] Dict: 03/07/221930 Trans: 03/07/222000 PJE [id number] Interpreted by: LALA MCINTYRE MD Electronically signed by: LALA MCINTYRE MD 03/07/222000 Reviewed: Reviewed by Me Diagonstic Imaging: Xray Plain Films/CT/US/NM/MRI: forearm Comments [facility] [place], [place] NAME: POWER IBANEZ [facility] REC#: [id number] PT STATUS: REG ER : 1995 PHYSICIAN: GIRMA FERNANDEZ MD ADMIT DATE: 03/07/22/ER FS Signed Date of Exam:03/07/22 FOREARM 2 VIEW RIGHT HISTORY: Pain in the right forearm and elbow after fall. TECHNIQUE: Two views of the right forearm. COMPARISON: None. FINDINGS: No acute fracture or dislocation is seen in the right forearm. Alignment appears normal. Joint spaces are preserved. There is no significant right elbow joint effusion appreciated on this exam. IMPRESSION: No acute osseous abnormality is seen in the right forearm. Dictated by: Dictated on workstation # [id number] Dict: 03/07/221931 Trans: 03/07/222000 [id number] Interpreted by: LALA MCINTYRE MD Electronically signed by: LALA MCINTYRE MD 03/07/222000 Reviewed: Reviewed by Me Departure Impression Primary Impression: Contusion of right hand, initial encounter Additional Impressions: Contusion of right forearm, initial encounter Contusion of right shoulder, initial encounter Sprain of unspecified site of left knee, initial encounter Fall at home Qualified Codes: W19.XXXA - Unspecified fall, initial encounter; Y92.009 - Unspecified place in unspecified non-institutional (private) residence as the place of occurrence of the external cause Disposition: 01 HOME, SELF-CARE Condition: Stable Departure-Patient Inst. Decision time for Depature: 20:03 Referrals: NAMRATA TURPIN APRN (PCP/Family) Primary Care Physician Patient Instructions: Preventing Falls ED, Knee Sprain ED, Shoulder Pain ED, Minor Contusion ED, Using Cold for Pain, Shoulder Pain (DC) Add. Discharge Instructions: Use ice 15 to 20 minutes every few hours as needed for pain and swelling. Take ibuprofen (Motrin or Advil) up to 4 of the [id number]-ems-[id number] pills or 800 mg every 8 hours as needed for pain and inflammation. If your symptoms are not improving or you are having worsening problems you could check back with the clinic or return for further evaluation. After the first 2 to 3 days she could add in heat or alternate with the ice to try and help with inflammation and pain All discharge instructions reviewed with patient and/or family. Voiced understanding. GIRMA FERNANDEZ MD March 07, 2022 18:58
[2022-03-07] MEDS ORDERED: IBUPROFEN 800 MG (MOTRIN) TAB PO STA (19:30)
[2022-03-07] MEDS ORDERED: ONDANSETRON 4 MG (ZOFRAN) ORAL DISSOLVE TAB PO STA (19:31)
--- NOTE | 2022-03-07 19:34 | Diagnostic Imaging Report ---
EXAMINATION: CT head and CT cervical spine without contrast. TECHNIQUE: Multiple contiguous axial images were obtained through the brain and cervical spine without the use of intravenous contrast. Sagittal and coronal reformations through the cervical spine were then performed. All CT scans use one or more of the following dose optimizing techniques: automated exposure control, MA and/or KvP adjustment based on patient size and exam type or iterative reconstruction. HISTORY: Head and neck pain after fall. COMPARISON: None available. FINDINGS: HEAD: The ventricles and sulci are normal. No abnormal attenuation of brain parenchyma is present. No acute intracranial hemorrhage or abnormal extra-axial fluid collections are present. No hyperdense vessel. The calvarium is intact. The mastoid air cells are clear. The visualized paranasal sinuses are clear. The orbits are normal. C-SPINE: Vertebral body height and alignment are preserved. No acute fracture, dislocation or destructive osseous process. No significant facet hypertrophy. No significant central canal or neuroforaminal stenosis. The paraspinous soft tissues are normal. The visualized thyroid gland is normal. The visualized lung apices are normal. IMPRESSION: 1. No acute intracranial abnormality. 2. No cervical spine fracture. Dictated by: Dictated on workstation # [id number]
--- NOTE | 2022-03-07 19:37 | Diagnostic Imaging Report ---
HISTORY: Pain in the right shoulder after fall. TECHNIQUE: 3 views of the right shoulder. COMPARISON: None. FINDINGS: No acute fracture or dislocation is seen in the right shoulder. Alignment appears normal. Joint spaces are preserved. IMPRESSION: No acute osseous abnormality is seen in the right shoulder. Dictated by: Dictated on workstation # [id number]
--- NOTE | 2022-03-07 19:37 | Diagnostic Imaging Report ---
HISTORY: Pain in the left knee after fall. TECHNIQUE: 3 views of the left knee. COMPARISON: None. FINDINGS: No acute fracture or dislocation is seen in the left knee. Alignment appears normal. Joint spaces are preserved. There appear to be postsurgical changes in the left knee. No significant joint effusion is seen. IMPRESSION: No acute osseous abnormality is seen in the left knee. Dictated by: Dictated on workstation # [id number]
--- NOTE | 2022-03-07 19:38 | Diagnostic Imaging Report ---
HISTORY: Pain in the right forearm and elbow after fall. TECHNIQUE: Two views of the right forearm. COMPARISON: None. FINDINGS: No acute fracture or dislocation is seen in the right forearm. Alignment appears normal. Joint spaces are preserved. There is no significant right elbow joint effusion appreciated on this exam. IMPRESSION: No acute osseous abnormality is seen in the right forearm. Dictated by: Dictated on workstation # [id number]
--- NOTE | 2022-03-07 19:55 | Diagnostic Imaging Report ---
HISTORY: Pain in the right hand and wrist after fall. TECHNIQUE: 3 views of the right hand. COMPARISON: None. FINDINGS: No acute fracture or dislocation is seen in the right hand. Alignment appears normal. Joint spaces are preserved. No cortical erosions are seen. IMPRESSION: No acute osseous abnormality is seen in the right hand. Dictated by: Dictated on workstation # [id number]
[2022-03-07 20:06] VITALS: BP 128/93
== END 2022-03-07 20:11 | disposition home or self-care (01) ==
LOC: EDUNIT# 18:38 → ER FS 18:41
DX: S50.11XA Contusion of right forearm, initial encounter (principal); S60.221A Contusion of right hand, initial encounter; S40.011A Contusion of right shoulder, initial encounter; S83.92XA Sprain of unspecified site of left knee, initial encounter; M25.521 Pain in right elbow; M25.552 Pain in left hip; W01.0XXA Fall on same level from slipping, tripping and stumbling without subsequent striking against object, initial encounter; Y92.009 Unspecified place in unspecified non-institutional (private) residence as the place of occurrence of the external cause
CPT/HCPCS: 70450; 72125; 73030; 73090; 73130; 73562

== ENCOUNTER 2022-03-10 12:17 | Emergency (ER) | payer OTHER ==
[~2022-03-10] VITALS: Ht 165.1 cm; Wt 72.5 kg
--- NOTE | 2022-03-10 12:37 | ED GU-Female ---
General Stated Complaint: ABN VAGINAL BLEEDING; DIZZINESS; HEADACHE Source: patient Exam Limitations: no limitations History of Present Illness Date Seen by Provider: March 10, 2022 Time Seen by Provider: 12:23 Initial Comments 26-year-old female with past medical history of diabetes and hypertension most notably coming in due to vaginal bleeding. Her LMP was roughly 20 days ago, and typically is every 35 days regular. Started having bleeding roughly 3 days ago. Has been heavier than typical, she has been going through a pad about every 3-4 hours. Had significant abdominal cramping yesterday, but today it is very mild 1 out of 10. Has not had any medicines for this as of yet. Does not take any blood thinners. Has not had any trauma. She is otherwise denying any other acute complaints. Allergies and Home Medications Allergies Coded Allergies: cephalexin (Verified Allergy, Unknown, 07/31/17) Patient Home Medication List Home Medication List Reviewed: Yes Aripiprazole (Aripiprazole) 5 Mg Tablet, (Reported) Entered as Reported by: QI ROPER on 11/10/16 235 Fluoxetine HCl (Fluoxetine HCl) 20 Mg Capsule, (Reported) Entered as Reported by: JANET JACKSON on 12/14/15 0128 Hydroxyzine HCl (Hydroxyzine HCl) 25 Mg Tablet, (Reported) Entered as Reported by: QI ROPER on 11/10/16 235 Metformin HCl (Metformin HCl ER) 500 Mg Tab.er.24h, (Reported) Entered as Reported by: QI ROPER on 11/10/16 235 Nitrofurantoin Monohyd/M-Cryst (Macrobid 100 mg Capsule) 100 Mg Capsule, 100 MG PO BID Prescribed by: TOÑITO MCMAHAN on 11/11/16 0101 Review of Systems Review of Systems Constitutional: No chills, No fever EENTM: No blurred vision Respiratory: No cough Cardiovascular: No chest pain Gastrointestinal: No nausea, No vomiting Genitourinary: other (vaginal bleeding) Musculoskeletal: no symptoms reported Skin: no symptoms reported Psychiatric/Neurological: No Symptoms Reported Endocrine: No Symptoms Reported Hematologic/Lymphatic: No Symptoms Reported All Other Systemes Reviewed Negative Unless Noted: Yes Past Fvjzqdq-Ygmoam-Htlmhq Hx Patient Social History Tobacco Use?: No Immunizations Up To Date Tetanus Booster (TDap): Unknown PED Vaccines UTD: Yes Seasonal Allergies Seasonal Allergies: Yes Past Medical History Surgeries: Yes (LEFT ACL REPAIR, WISDOM TEETH REMOVED) Orthopedic Respiratory: No Cardiac: No Neurological: No Reproductive Disorders: No Female Reproductive Disorders: Denies Sexually Transmitted Disease: No HIV/AIDS: No Gastrointestinal: Yes ("Fatty Liver") Liver Disease/Jaundice Musculoskeletal: No Endocrine: Yes (DX 08/2016) Diabetes, Non-Insulin dep Cancer: No Psychosocial: Yes Anxiety, Suicide Attempts, Depression Integumentary: No Blood Disorders: No Adverse Reaction/Blood Tranf: No Family Medical History Hypertension Physical Exam Vital Signs Vital Signs - First Documented 03/10/22 12:40 Temp 36.5 Pulse 92 Resp 18 B/P (MAP) 124/83 (97) Pulse Ox 100 O2 Delivery Room Air Capillary Refill : Height, Weight, BMI Height: 5'3" Weight: 180lbs. oz. 81.680263xj; 28.00 BMI Method:Stated General Appearance: WD/WN, no apparent distress HEENT: PERRL/EOMI, normal ENT inspection, pharynx normal Neck: non-tender, full range of motion, supple, normal inspection Cardiovascular: regular rate, rhythm, no edema, no murmur Respiratory: chest non-tender, lungs clear, normal breath sounds, no respiratory distress, no accessory muscle use Gastrointestinal: normal bowel sounds, non tender, soft; No distended, No guarding, No rebound Back: normal inspection, no CVA tenderness Extremities: normal range of motion, non-tender, normal inspection, no pedal edema, no calf tenderness, normal capillary refill Neurologic/Psychiatric: no motor/sensory deficits, alert, normal mood/affect Skin: normal color, warm/dry Lymphatic: no adenopathy Progress/Results/Core Measures Suspected Sepsis SIRS Temperature: Pulse: Respiratory Rate: Laboratory Tests 03/10/22 12:40: White Blood Count 7.1 Blood Pressure / Mean: Laboratory Tests 03/10/22 12:40: Platelet Count 299 Results/Orders Lab Results Laboratory Tests Test 03/10/22 12:40 Range/Units White Blood Count 7.1 4.3-11.0 10^3/uL Red Blood Count 4.95 3.80-5.11 10^6/uL Hemoglobin 14.9 11.5-16.0 g/dL Hematocrit 43 35-52 % Mean Corpuscular Volume 87 80-99 fL Mean Corpuscular Hemoglobin 30 25-34 pg Mean Corpuscular Hemoglobin Concent 35 32-36 g/dL Red Cell Distribution Width 12.1 10.0-14.5 % Platelet Count 299 130-400 10^3/uL Mean Platelet Volume 9.9 9.0-12.2 fL Immature Granulocyte % (Auto) 0 % Neutrophils (%) (Auto) 60 42-75 % Lymphocytes (%) (Auto) 31 12-44 % Monocytes (%) (Auto) 7 0-12 % Eosinophils (%) (Auto) 1 0-10 % Basophils (%) (Auto) 0 0-10 % Neutrophils # (Auto) 4.2 1.8-7.8 10^3/uL Lymphocytes # (Auto) 2.2 1.0-4.0 10^3/uL Monocytes # (Auto) 0.5 0.0-1.0 10^3/uL Eosinophils # (Auto) 0.1 0.0-0.3 10^3/uL Basophils # (Auto) 0.0 0.0-0.1 10^3/uL Immature Granulocyte # (Auto) 0.0 0.0-0.1 10^3/uL My Orders Orders - KELSEY STORY MD Cbc With Automated Diff (03/10/22 12:34) Urine Bedside (03/10/22 12:34) Vital Signs/I&O 03/10/22 12:40 Temp 36.5 Pulse 92 Resp 18 B/P (MAP) 124/83 (97) Pulse Ox 100 O2 Delivery Room Air Capillary Refill : Progress Note : Progress Note 26-year-old female with above history coming in due to vaginal bleeding. ABCs were intact and vitals were stable on presentation. I personally did or thostatics, and she is not orthostatic on my exam. CBC with hemoglobin greater than 14 which is reassuring. Fgbtf-pn-bfwf test negative. I discussed with the patient that she is not having more than 1 pad saturated per hour, and she is compensating well. I recommended follow-up with TECHNOLOGY COACH in [place] which she is willing to do. She says she is trying to get . Departure Impression Primary Impression: Vaginal bleeding Disposition: 01 HOME, SELF-CARE Condition: Stable Departure-Patient Inst. Decision time for Depature: 13:08 Referrals: NAMRATA TURPIN APRN (PCP) Primary Care Physician [facility] (Family) Primary Care Physician NAHOMY SOLIS DO Patient Instructions: Heavy Periods ED Add. Discharge Instructions: If you are fully saturating a heavy pad every hour for several hours then I would want you to come immediately to the ER. Fortunately you are not anemic today, and your body is compensating well. Take ibuprofen and/or Tylenol as needed for cramps. Can follow-up with Dr. Vergara in [place] who is a great TECHNOLOGY COACH. KELSEY STORY MD March 10, 2022 12:37
[2022-03-10 12:40] VITALS: BP 124/83
[2022-03-10 12:48] LABS: BASOPHILS % (AUTO) 0 % (0-10); EOSINOPHILS # (AUTO) 0.1 10^3/uL (0.0-0.3); EOSINOPHILS % (AUTO) 1 % (0-10); HEMATOCRIT 43 % (35-52); HEMOGLOBIN 14.9 g/dL (11.5-16.0); LYMPHOCYTES # (AUTO) 2.2 10^3/uL (1.0-4.0); LYMPHOCYTES % (AUTO) 31 % (12-44); MEAN CORPUSCULAR HEMOGLOBIN 30 pg (25-34); MEAN CORPUSCULAR HGB CONC 35 g/dL (32-36); MEAN CORPUSCULAR VOLUME 87 fL (80-99); MEAN PLATELET VOLUME 9.9 fL (9.0-12.2); MONOCYTES # (AUTO) 0.5 10^3/uL (0.0-1.0); MONOCYTES % (AUTO) 7 % (0-12); NEUTROPHILS # (AUTO) 4.2 10^3/uL (1.8-7.8); NEUTROPHILS % (AUTO) 60 % (42-75); PLATELET COUNT 299 10^3/uL (130-400); WHITE BLOOD COUNT 7.1 10^3/uL (4.3-11.0)
== END 2022-03-10 13:15 | disposition home or self-care (01) ==
LOC: EDUNIT# 12:17 → ER FS 12:19
DX: N93.9 Abnormal uterine and vaginal bleeding, unspecified (principal); Z32.02 Encounter for pregnancy test, result negative
CPT/HCPCS: 36415; 84703; 85025

== ENCOUNTER 2022-03-18 22:13 | Emergency (ER) | payer OTHER ==
[~2022-03-18] VITALS: Ht 160 cm; Wt 71.7 kg
[2022-03-18] MEDS ORDERED: KETOROLAC 30 MG/ML VIAL IVP STA (22:26)
[2022-03-18] MEDS ORDERED: NS IV 1000 ML 1,000 ML IV SCH (22:30)
[2022-03-18] MEDS ORDERED: ONDANSETRON 4 MG/2 ML (SDV) Z0FRAN IV ONE (22:30)
[2022-03-18 22:36] LABS: BASOPHILS % (AUTO) 0 % (0-10); EOSINOPHILS # (AUTO) 0.1 10^3/uL (0.0-0.3); EOSINOPHILS % (AUTO) 1 % (0-10); HEMATOCRIT 39 % (35-52); HEMOGLOBIN 13.4 g/dL (11.5-16.0); LYMPHOCYTES % (AUTO) 39 % (12-44); MEAN CORPUSCULAR HEMOGLOBIN 30 pg (25-34); MEAN CORPUSCULAR HGB CONC 35 g/dL (32-36); MEAN CORPUSCULAR VOLUME 86 fL (80-99); MEAN PLATELET VOLUME 9.9 fL (9.0-12.2); MONOCYTES # (AUTO) 0.7 10^3/uL (0.0-1.0); MONOCYTES % (AUTO) 8 % (0-12); NEUTROPHILS % (AUTO) 51 % (42-75); PLATELET COUNT 318 10^3/uL (130-400); WHITE BLOOD COUNT 7.8 10^3/uL (4.3-11.0)
--- NOTE | 2022-03-18 22:36 | ED General ---
General Chief Complaint: Cough/Cold/Flu Symptoms Stated Complaint: CP,COUGH,HEADACHE Nursing Triage Note: PT PRESENTS WITH C.O COUGH, H/A, AND SORE THROAT THAT BEGAN LAST THURSDAY. REPORTS INCREASED SOB SINCE THAT TIME. DENIES FEVER. REPORTS HAVING BEEN SEEN MULTIPLE TIMES AND HAVING MULTIPLE COVID AND STREP TEST RAN THAT HAVE BEEN NEGATIVE. Source of Information: Patient History of Present Illness Date Seen by Provider: March 18, 2022 Time Seen by Provider: 22:15 Initial Comments 26-year-old female presenting with complaints of cough, headache, sore throat that started last . She was seen through the clinic and had a rapid strep and COVID test that were both negative per patient report. She states that she has been seen multiple times and had multiple COVID and strep tests that have been negative. She continues to cough and have shortness of breath. She denies having any fever. She feels like her throat is swelling and had difficulty swallowing at supper tonight. She does have type 2 diabetes and takes multiple medicines but states she does not have a monitor to see what her sugars are doing. Timing/Duration: 1 Week Severity: Severe Modifying Factors: worse with Movement (Activity makes her feel worse) Associated Systoms: Chest Pain (Chest wall pain with coughing and tightness in her chest), Cough; No Diaphoresis, No Fever/Chills; Headaches, Loss of Appetite, Malaise, Nausea/Vomiting (Nausea but no vomiting); No Rash, No Seizure; Shortness of Air; No Syncope; Weakness Allergies and Home Medications Allergies Coded Allergies: cephalexin (Verified Allergy, Unknown, 07/31/17) Patient Home Medication List Home Medication List Reviewed: Yes Aripiprazole (Aripiprazole) 5 Mg Tablet, (Reported) Entered as Reported by: QI ROPER on 11/10/162357 Fluoxetine HCl (Fluoxetine HCl) 20 Mg Capsule, (Reported) Entered as Reported by: JANET JACKSON on 12/14/15 0128 Hydroxyzine HCl (Hydroxyzine HCl) 25 Mg Tablet, (Reported) Entered as Reported by: QI ROPER on 11/10/162357 Metformin HCl (Metformin HCl ER) 500 Mg Tab.er.24h, (Reported) Entered as Reported by: QI ROPER on 11/10/162357 Nitrofurantoin Monohyd/M-Cryst (Macrobid 100 mg Capsule) 100 Mg Capsule, 100 MG PO BID Prescribed by: TOÑITO MCMAHAN on 11/11/16 0101 Prednisone (Prednisone) 20 Mg Tab, 40 MG PO DAILY Prescribed by: GIRMA FERNANDEZ on 03/18/22 0497 Review of Systems Review of Systems Constitutional: No chills, No diaphoresis, No fever; malaise EENTM: throat pain; No ear discharge, No hearing loss, No ear pain, No blurred vision, No epistaxis Respiratory: cough, short of breath; No stridor, No wheezing Cardiovascular: see HPI; No edema Gastrointestinal: nausea; No vomiting Genitourinary: other (Having irregular menstrual cycles) Musculoskeletal: muscle pain (Generalized body aches) Skin: No rash Psychiatric/Neurological: Headache Hematologic/Lymphatic: Denies Blood Clots, Denies Easy Bleeding, Denies Easy Bruising Immunological/Allergic: no symptoms reported Past Aqthnuo-Myaokc-Dovqgj Hx Patient Social History Tobacco Use?: No Substance use?: No Alcohol Use?: Yes Alcohol Frequency: Once in a while Pt feels they are or have been: No Immunizations Up To Date Tetanus Booster (TDap): Unknown PED Vaccines UTD: Yes Influenza Vaccine Up-to-Date: No; Not Current First/Initial COVID19 Vaccinat: UNKNOWN DATE Second COVID19 Vaccination Nathan: UNKNOWN DATE Seasonal Allergies Seasonal Allergies: Yes Past Medical History Surgeries: Yes (LEFT ACL REPAIR, WISDOM TEETH REMOVED) Orthopedic Respiratory: No Cardiac: No Neurological: No Last Menstrual Period: March 09, 2022 Reproductive Disorders: No Female Reproductive Disorders: Denies Sexually Transmitted Disease: No HIV/AIDS: No Gastrointestinal: Yes ("Fatty Liver") Liver Disease/Jaundice Musculoskeletal: No Endocrine: Yes (DX 08/2016) Diabetes, Non-Insulin dep Cancer: No Psychosocial: Yes Anxiety, Suicide Attempts, Depression Integumentary: No Blood Disorders: No Adverse Reaction/Blood Tranf: No Family Medical History Hypertension Physical Exam Vital Signs Vital Signs - First Documented 03/18/22 22:27 Temp 36.5 Pulse 102 Resp 20 B/P (MAP) 148/95 (112) Pulse Ox 98 O2 Delivery Room Air Capillary Refill : Height, Weight, BMI Height: 5'3" Weight: 180lbs. oz. 81.056600lb; 28.00 BMI Method:Stated General Appearance: Anxious, Mild Distress (Appears to not feel well) HEENT: PERRL/EOMI, Moist Mucous Membranes, Pharyngeal Erythema; No Photophobia, No Tonsillar Exudate; Tonsillar Enlargement, Other (Erythema with mild swelling to the posterior pharynx. 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 Norm as Tested Skin: Normal Color, Warm/Dry Focused Exam Lactate Level 03/18/22 22:35: Lactic Acid Level 1.49 Lactic Acid Level Laboratory Tests Test 03/18/22 22:35 Lactic Acid Level 1.49 MMOL/L (0.50-2.00) Progress/Results/Core Measures Suspected Sepsis SIRS Temperature: Pulse: 102 Respiratory Rate: 20 Laboratory Tests 03/18/22 22:29: White Blood Count 7.8 Blood Pressure 148 /95 Mean: 112 03/18/22 22:35: Lactic Acid Level 1.49 Laboratory Tests 03/18/22 22:29: Creatinine 0.59L, INR Comment 0.9, Platelet Count 318, Total Bilirubin 0.5 Results/Orders Lab Results Laboratory Tests Test 03/18/22 22:27 03/18/22 22:28 03/18/22 22:29 03/18/22 22:35 Range/Units Group A Streptococcus Screen NEGATIVE NEGATIVE Influenza Type A Antigen NEGATIVE NEGATIVE Influenza Type B Antigen NEGATIVE NEGATIVE White Blood Count 7.8 4.3-11.0 10^3/uL Red Blood Count 4.52 3.80-5.11 10^6/uL Hemoglobin 13.4 11.5-16.0 g/dL Hematocrit 39 35-52 % Mean Corpuscular Volume 86 80-99 fL Mean Corpuscular Hemoglobin 30 25-34 pg Mean Corpuscular Hemoglobin Concent 35 32-36 g/dL Red Cell Distribution Width 12.0 10.0-14.5 % Platelet Count 318 130-400 10^3/uL Mean Platelet Volume 9.9 9.0-12.2 fL Immature Granulocyte % (Auto) 0 % Neutrophils (%) (Auto) 51 42-75 % Lymphocytes (%) (Auto) 39 12-44 % Monocytes (%) (Auto) 8 0-12 % Eosinophils (%) (Auto) 1 0-10 % Basophils (%) (Auto) 0 0-10 % Neutrophils # (Auto) 4.0 1.8-7.8 10^3/uL Lymphocytes # (Auto) 3.0 1.0-4.0 10^3/uL Monocytes # (Auto) 0.7 0.0-1.0 10^3/uL Eosinophils # (Auto) 0.1 0.0-0.3 10^3/uL Basophils # (Auto) 0.0 0.0-0.1 10^3/uL Immature Granulocyte # (Auto) 0.0 0.0-0.1 10^3/uL Prothrombin Time 13.0 12.2-14.7 SEC INR Comment 0.9 0.8-1.4 Activated Partial Thromboplast Time 27 24-35 SEC Sodium Level 140 135-145 MMOL/L Potassium Level 3.9 3.6-5.0 MMOL/L Chloride Level 99 98-107 MMOL/L Carbon Dioxide Level 29 21-32 MMOL/L Anion Gap 12 5-14 MMOL/L Blood Urea Nitrogen 18 7-18 MG/DL Creatinine 0.59 L 0.60-1.30 MG/DL Estimat Glomerular Filtration Rate 127 BUN/Creatinine Ratio 31 Glucose Level 164 H 70-105 MG/DL Calcium Level 10.1 8.5-10.1 MG/DL Corrected Calcium 8.5-10.1 MG/DL Total Bilirubin 0.5 0.1-1.0 MG/DL Aspartate Amino Transf (AST/SGOT) 36 H 5-34 U/L Alanine Aminotransferase (ALT/SGPT) 65 H 0-55 U/L Alkaline Phosphatase 93 40-136 U/L Troponin I < 0.30 <0.30 NG/ML C-Reactive Protein 0.40 <0.50 MG/DL Total Protein 7.4 6.4-8.2 GM/DL Albumin 4.6 H 3.2-4.5 GM/DL Serum Test, Qualitative NEGATIVE NEGATIVE Lactic Acid Level 1.49 0.50-2.00 MMOL/L Test 03/18/22 23:12 Range/Units Urine Color YELLOW Urine Clarity SL CLOUDY Urine pH 6.5 5-9 Urine Specific [place] 1.020 1.016-1.022 Urine Protein NEGATIVE NEGATIVE Urine Glucose (UA) 3+ H NEGATIVE Urine Ketones NEGATIVE NEGATIVE Urine Nitrite NEGATIVE NEGATIVE Urine Bilirubin NEGATIVE NEGATIVE Urine Urobilinogen 0.2 < = 1.0 MG/DL Urine Leukocyte Esterase NEGATIVE NEGATIVE Urine RBC (Auto) NEGATIVE NEGATIVE Urine RBC NONE /HPF Urine WBC 0-2 /HPF Urine Squamous Epithelial Cells 0-2 /HPF Urine Crystals NONE /LPF Urine Bacteria FEW H /HPF Urine Casts NONE /LPF Urine Mucus SMALL H /LPF Urine Culture Indicated NO My Orders Orders - GIRMA FERNANDEZ MD Monitor-Rhythm Ecg Trace Only (03/18/22 22:) Ed Iv/Invasive Line Start (03/18/22:) Cbc With Automated Diff (03/18/22:) Comprehensive Metabolic Panel (03/18/22:) Crp Fs (03/18/22:) Troponin I Fs (03/18/22:) Protime With Inr (03/18/22:) Partial Thromboplastin Time (03/18/22:) Ekg Tracing (03/18/22:) Ns Iv 1000 Ml (Sodium Chloride 0.9%) (03/18/22 22:30) Ondansetron Injection (Zofran Injectio (03/18/22 22:30) Blood Culture (03/18/22:) Rapid Strep A Screen (03/18/22:) Influenza A & B Antigens (03/18/22:) Covid 19 Inhouse Test (03/18/22 22:26) Chest 1 View Ap/Pa Only (03/18/22:26) Lactic Acid Analyzer (03/18/22:) Ketorolac Injection (Toradol Injection) (03/18/22:) Dexamethasone Injection (Decadron Inje (03/18/22 22:26) Hcg,Qualitative Serum (03/18/22 22:30) Ua Culture If Indicated (03/18/22 23:10) Albuterol Inhaler (Albuterol) (03/18/22 23:11) Medications Given in ED Current Medications Medications Dose Ordered Sig/Myra Route Start Time Stop Time Status Last Admin Dose Admin Ondansetron HCl 4 mg ONCE ONCE IV 03/18/22 22:30 03/18/22 22:31 DC 03/18/22 22:38 4 MG Vital Signs/I&O 03/18/22 03/18/22 03/18/22 03/18/22 22:27 22:27 23:00 23:45 Temp 36.5 Pulse 102 89 75 Resp 20 16 15 B/P (MAP) 148/95 (112) 121/83 125/85 Pulse Ox 98 98 97 O2 Delivery Room Air Room Air Room Air Room Air Capillary Refill : Blood Pressure Mean: 112 Progress Note #1: Progress Note Advised patient that we could try repeating the same test that was already been done through the clinic previously. Will check labs as well as COVID, influenza, rapid strep. Chest x-ray to look for possible infiltrate or pneumonia. Cardiac enzymes and EKG. Give normal saline 1 L IV fluid bolus to help with hydration. Toradol 30 mg IV for pain, Zofran 4 mg IV for nausea and vomiting, Decadron 10 mg IV x1 for breathing and throat swelling sensation Progress Note #2: Progress Note EKG does not show any acute ischemic changes. Chest x-ray does not show any acute process. Labs have a stable CBC without elevated white blood cell count or anemia. Her chemistry panel was stable without acute significant abnormality but she did have mild elevation of her glucose to 164. Her CRP was normal at 0.4. Troponin was normal at less than 0.3. Her influenza swab for A and B as well as the rapid strep swab were all negative. She continues to sat 98 to 100% on room air. Blood pressures are doing well in the 120s over 70s to 80s. Her heart rate is in the upper 90s. Will reassess the patient and see if she can provide a urinalysis. So far she does not have any acute issue that would indicate she requires hospital admission. Will continue with symptomatic treatment and care and have her follow-up with primary care provider for further concerns. Encouraged to continue to quarantine until she has her COVID result from tonight. Progress Note #3: Progress Note UA was clear and no infection. Discharge to home to use inhaler with spacer. Try Mucinex to loosen cough. 3 additional days of steroid to help with cough and sore throat. Counseled this will raise her sugars for next 3-5 days and to really watch her diet. ECG Initial ECG Impression Date: March 18, 2022 Initial ECG Impression Time: 22:37 Initial ECG Rate: 92 Initial ECG Rhythm: Normal Sinus Initial ECG Comparisson: No Previous ECG Available Comment Sinus rhythm with a sinus arrhythmia and a heart rate of [address] elevation. OH interval 170 ms. Diffuse T wave flattening. QT interval 361 ms with a QTc interval 411 ms. Overall appears similar to prior tracing in the system from 2017 Diagnostic Imaging Diagonstic Imaging: Xray Plain Films/CT/US/NM/MRI: chest Comments NAME: POWER IBANEZ [facility] REC#: [id number] PT STATUS: REG ER : 1995 PHYSICIAN: GIRMA FERNANDEZ MD ADMIT DATE: 03/18/22/ER FS Signed Date of Exam:03/18/22 CHEST 1 VIEW AP/PA ONLY CHEST 1 VIEW AP/PA ONLY Indication: Cough and shortness of breath Comparison: None available. Findings: No focal airspace disease in the visualized lungs. Please note that the posterior lower lobes are poorly evaluated by portable radiography. No pleural effusion or pneumothorax. Normal cardiomediastinal silhouette. Impression: 1. No acute cardiopulmonary process by portable radiography. Dictated by: Dictated on workstation # [id number] Dict: 03/18/222257 Trans: 03/18/222257 [facility] [id number] Interpreted by: MARILYN PEARCE MD Electronically signed by: MARILYN PEARCE MD 03/18/222257 Reviewed: Reviewed by Me Departure Impression Primary Impression: Pharyngitis Qualified Codes: J02.9 - Acute pharyngitis, unspecified Additional Impressions: Upper respiratory infection with cough and congestion Person under investigation for severe acute respiratory syndrome coronavirus 2 (SARS-CoV-2) infection Disposition: 01 HOME, SELF-CARE Condition: Stable Departure-Patient Inst. Decision time for Depature: 23:38 Referrals: NAMRATA TURPIN APRN (PCP) Primary Care Physician [facility] (Family) Primary Care Physician Patient Instructions: COVID-19 After You Have Been Vaccinated, Cough, Adult ED, How to Use a Metered Dose Inhaler ED, How to Use a Spacer, Sore Throat, Adult ED, Upper Respiratory Infection ED Add. Discharge Instructions: Stay well-hydrated and drink plenty of fluids. Consider taking Mucinex to help loosen cough and congestion. Watch what you eat closely for the next 3-5 days because the steroid will make your sugars run higher than normal for you. Once you stop the steroid that effect will go away over 24-48 hours. The steroid will help with your sore throat, throat swelling, cough, congestion and body aches/headache. You should remain isolated and quarantined until you get results of the COVID swab from [facility]. Use the inhaler with spacer to help with cough and shortness of breath. This can make you feel shaky or jittery, especially if you use it more frequently than every 4 hours. You would use this by taking 2 puffs of the inhaler in the spacer every 4 hours as needed for cough, shortness of breath, wheezing. Follow-up with the clinic for continued concerns. All discharge instructions reviewed with patient and/or family. Voiced understanding. Scripts Prednisone (Prednisone) 20 Mg Tab 40 MG PO DAILY for cough/congestion for 3 Days, #6 TAB 0 Refills Prov: GIRMA FERNANDEZ MD 03/18/22 GIRMA FERNANDEZ MD March 18, 2022 22:36
[2022-03-18 22:46] LABS: INR 0.9 (0.8-1.4)
[2022-03-18 22:59] LABS: ALANINE AMINOTRANSFERASE 65 U/L (0-55); ALKALINE PHOSPHATASE 93 U/L (40-136); BILIRUBIN,TOTAL 0.5 MG/DL (0.1-1.0); BUN/CREATININE RATIO 31; CALCIUM 10.1 MG/DL (8.5-10.1); CARBON DIOXIDE 29 MMOL/L (21-32); CHLORIDE 99 MMOL/L (98-107); CREATININE SERUM 0.59 MG/DL (0.60-1.30); GFR ESTIMATED 127; GLUCOSE 164 MG/DL (70-105); POTASSIUM 3.9 MMOL/L (3.6-5.0); SODIUM 140 MMOL/L (135-145); TOTAL PROTEIN 7.4 GM/DL (6.4-8.2)
--- NOTE | 2022-03-18 22:59 | Diagnostic Imaging Report ---
CHEST 1 VIEW AP/PA ONLY Indication: Cough and shortness of breath Comparison: None available. Findings: No focal airspace disease in the visualized lungs. Please note that the posterior lower lobes are poorly evaluated by portable radiography. No pleural effusion or pneumothorax. Normal cardiomediastinal silhouette. Impression: 1. No acute cardiopulmonary process by portable radiography. Dictated by: Dictated on workstation # [id number]
[2022-03-18 23:00] LABS: ALBUMIN 4.6 GM/DL (3.2-4.5)
[2022-03-18] MEDS ORDERED: RT-ALBUTEROL HFA 8.5 GM INHALER IH STA (23:11)
[2022-03-18 23:23] LABS: BILIRUBIN,URINE NEGATIVE (NEGATIVE); CLARITY,URINE SL CLOUDY; COLOR,URINE YELLOW; GLUCOSE, URINE (UA) 3+ (NEGATIVE); KETONES,URINE NEGATIVE (NEGATIVE); LEUKOCYTE ESTERASE ,URINE NEGATIVE (NEGATIVE); NITRITE,URINE NEGATIVE (NEGATIVE); PH,URINE 6.5 (5-9); PROTEIN,URINE NEGATIVE (NEGATIVE)
[2022-03-18] MEDS ORDERED: PRD20T PO (23:27)
[2022-03-18 23:28] LABS: WBC,URINE 0-2 /HPF
[2022-03-18 23:29] LABS: BACTERIA,URINE FEW /HPF; SQUAMOUS EPITHELIAL CELL,UR 0-2 /HPF
[2022-03-18 23:45] VITALS: BP 125/85
== END 2022-03-18 23:45 | disposition home or self-care (01) ==
LOC: EDUNIT# 22:13 → ER FS 22:14
DX: J02.9 Acute pharyngitis, unspecified (principal); J06.9 Acute upper respiratory infection, unspecified; Z20.822 Contact with and (suspected) exposure to COVID-19
CPT/HCPCS: 36415; 71045; 80053; 81000; 83605; 84484; 84703; 85025; 85610; 85730; 86141; 87040; 87430; 87636; 87804; 93005; 93041

== ENCOUNTER 2022-03-24 16:38 | Emergency (ER) | payer OTHER ==
[~2022-03-24] VITALS: Ht 160 cm; Wt 72.6 kg
[~2022-03-24 16:38] MED LIST changes: +PRD20T PO
--- NOTE | 2022-03-24 17:28 | Diagnostic Imaging Report ---
Indication: Pain 3 views were obtained FINDINGS: The alignment is normal. There are mild degenerative changes. There appears to have been a previous ACL repair. There is a questionable erosion along the lateral aspect of the distal femur. No acute fracture or dislocation. IMPRESSION: Mild degenerative changes. Previous ACL repair. Questionable erosive process along the lateral aspect of the distal femur. Recommend clinical correlation. Dictated by: Dictated on workstation # [id number]
--- NOTE | 2022-03-24 17:32 | Diagnostic Imaging Report ---
INDICATION: Right ankle pain. FINDINGS: Three views of the right ankle show no fracture, dislocation or other acute abnormalities. IMPRESSION: Negative right ankle. Dictated by: Dictated on workstation # [id number]
--- NOTE | 2022-03-24 18:38 | ED Fall/Injury ---
General Chief Complaint: Lower Extremity Stated Complaint: WC,L KNEE PAIN,R ANKLE PAIN Nursing Triage Note: PT AMBULATE TO ROOM [facility]SO[facility] WITH C/O LEFT KNEE PAIN STARTING THIS MORNING AND RIGHT ANKLE PAIN AFTER STEPPING IN A POTHOLE AT WORK. PT REPORTS SHE MAY HAVE INJURED KNEE DURING SEX LAST NIGHT. Source: patient History of Present Illness Date Seen by Provider: Mar 24, 2022 Time Seen by Provider: 18:04 Initial Comments 26-year-old female presenting with multiple complaints. She states that she stepped in a pothole at work and sprained her right ankle. She also has been having some left knee pain but is worse after stepping in a pothole. She recently had strep throat and was on antibiotics for that. She is now having a vaginal yeast infection with itching and burning. She has increased pain when she tries to walk. She is able to bear weight but has pain in her left knee and right ankle. She did not hit her head or lose consciousness. She states that she believes this will be a work comp since it happened at work. Occurred: just prior to arrival Severity: moderate Injuries/Pain Location: lower extremity (Left knee and right ankle) Context: other (Stepped in a pothole at work) Loss of Consciousness: no loss of consciousness Modifying Factors: Worse With Movement Associated Symptoms (Fall): No Abdominal Pain, No Chest Pain, No Confusion, No Dizziness, No Headache, No Lightheadedness, No Muscle Spasms, No Nausea/Vomiting, No Neck Pain, No Ringing in Ears, No Seizures, No Shortness of Air, No Slurred Speech; Trouble Walking (Pain when she tries to walk and bear weight); No Vision Changes Allergies and Home Medications Allergies Coded Allergies: cephalexin (Verified Allergy, Unknown, 07/31/17) Patient Home Medication List Home Medication List Reviewed: Yes Aripiprazole (Aripiprazole) 5 Mg Tablet, (Reported) Entered as Reported by: QI ROPER on 11/10/16 1848 Fluconazole (Fluconazole) 150 Mg Tablet, 150 MG PO ONCE Prescribed by: GIRMA FERNANDEZ on 03/24/22 1852 Fluoxetine HCl (Fluoxetine HCl) 20 Mg Capsule, (Reported) Entered as Reported by: JANET JACKSON on 12/14/15 0128 Hydroxyzine HCl (Hydroxyzine HCl) 25 Mg Tablet, (Reported) Entered as Reported by: QI ROPER on 11/10/162357 Metformin HCl (Metformin HCl ER) 500 Mg Tab.er.24h, (Reported) Entered as Reported by: QI Haile JUDSON on 11/10/162357 Nitrofurantoin Monohyd/M-Cryst (Macrobid 100 mg Capsule) 100 Mg Capsule, 100 MG PO BID Prescribed by: TOÑITO MCMAHAN on 11/11/16 0101 Prednisone (Prednisone) 20 Mg Tab, 40 MG PO DAILY Prescribed by: GIRMA FERNANDEZ on 03/18/22 2327 Review of Systems Review of Systems Constitutional: No chills, No fever Eyes: No Symptoms Reported Ears, Nose, Mouth, Throat: see HPI, throat pain (Improving throat pain as she is taking antibiotics for strep throat) Respiratory: no symptoms reported Cardiovascular: no symptoms reported Gastrointestinal: no symptoms reported Genitourinary: see HPI Musculoskeletal: see HPI, joint pain (Left knee and right ankle pain) Skin: No change in color Psychiatric/Neurological: No Symptoms Reported Past Ihgwsam-Lnjzfp-Joeuyn Hx Patient Social History Tobacco Use?: No Smoking Status: Never a Smoker Smokeless Tobacco Frequency: Never a User Use of E-Cig and/or Vaping dev: No Use of E-Cig and/or Vaping Dick: Never a User Substance use?: No Alcohol Use?: Yes Alcohol Frequency: Once in a while Pt feels they are or have been: No Immunizations Up To Date Tetanus Booster (TDap): Unknown PED Vaccines UTD: Yes First/Initial COVID19 Vaccinat: UNKNOWN DATE Second COVID19 Vaccination Nathan: UNKNOWN DATE COVID19 Vaccine Mitigation Supervisor: Lumiant Seasonal Allergies Seasonal Allergies: Yes Past Medical History Surgeries: Yes (LEFT ACL REPAIR, WISDOM TEETH REMOVED) Orthopedic Respiratory: No Cardiac: No Neurological: No Reproductive Disorders: No Female Reproductive Disorders: Denies Sexually Transmitted Disease: No HIV/AIDS: No Gastrointestinal: Yes ("Fatty Liver") Liver Disease/Jaundice Musculoskeletal: No Endocrine: Yes (DX 08/2016) Diabetes, Non-Insulin dep Cancer: No Psychosocial: Yes Anxiety, Suicide Attempts, Depression Integumentary: No Blood Disorders: No Adverse Reaction/Blood Tranf: No Family Medical History Hypertension Physical Exam Vital Signs Vital Signs - First Documented 03/24/22 16:42 Temp 36.5 Pulse 106 Resp 17 B/P (MAP) 133/86 (102) O2 Delivery Room Air Capillary Refill : Less Than 3 Seconds Height, Weight, BMI Height: 5'3" Weight: 180lbs. oz. 81.797609ye; 28.00 BMI Method:Stated General Appearance: WD/WN, no apparent distress HEENT: PERRL/EOMI Cardiovascular: normal peripheral pulses, regular rate, rhythm Respiratory: chest non-tender, lungs clear, normal breath sounds Extremities: normal range of motion, no calf tenderness, normal capillary refill, other (Pain with movement of the right ankle and pain with movement of the left knee. Negative drawer sign. 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, no motor/sensory deficits, alert, oriented x 3 Skin: normal color, warm/dry Darden Coma Score Best Eye Response: (4) Open Spontaneously Best Verbal Response: (5) Oriented Best Motor Response: (6) Obeys Commands Daquan Total: 15 Progress/Results/Core Measures Results/Orders My Orders Orders - GIRMA FERNANDEZ MD Ankle 3 View Right (03/24/22 17:05) Ice: Apply To Affected Area (03/24/22 17:05) Elevate Affected Extremity (03/24/22 17:05) Knee 3 View Left (03/24/22 17:05) Air Strup Ankle Brace (03/24/22 18:22) Knee Immobilizer (03/24/22 18:22) Fluconazole Tablet (Ed Only) (Diflucan T (03/24/22 18:52) Vital Signs/I&O 03/24/22 16:42 Temp 36.5 Pulse 106 Resp 17 B/P (MAP) 133/86 (102) O2 Delivery Room Air Blood Pressure Mean: 102 Progress Progress Note #1: Progress Note Obtain x-rays of the left knee and right ankle to evaluate for acute bony injury. Ice and elevate extremities to help with pain Progress Note #2: Progress Note No acute fracture or dislocation seen in the knee or the ankle. It did appear that she may be had some erosion or changes in the femur but patient has no pain or concerns there on her exam. Will place in a knee immobilizer for the left knee and ankle stirrup splint/Aircast for the right ankle. Continue ibuprofen and Tylenol as needed for pain. Ice and elevation. Check back with work comp per clinic if not improving in 3 to 7 days. She also was concerned about the vaginal itching and burning from yeast infection so we will administer Diflucan 150 mg p.o. x1. Prescription was also sent to [facility] Diagonstic Imaging: Xray Plain Films/CT/US/NM/MRI: knee [facility] [place] [place] NAME: POWER IBANEZ [facility] REC#: [id number] PT STATUS: REG ER : 1995 PHYSICIAN: GIRMA FERNANDEZ MD ADMIT DATE: 03/24/22/ER FS Signed Date of Exam:03/24/22 KNEE 3 VIEW LEFT Indication: Pain 3 views were obtained FINDINGS: The alignment is normal. There are mild degenerative changes. There appears to have been a previous ACL repair. There is a questionable erosion along the lateral aspect of the distal femur. No acute fracture or dislocation. IMPRESSION: Mild degenerative changes. Previous ACL repair. Questionable erosive process along the lateral aspect of the distal femur. Recommend clinical correlation. Dictated by: Dictated on workstation # [id number] Dict: 03/24/221725 Trans: 03/24/221728 [facility] [id number] Interpreted by: MIO MARIA MD Electronically signed by: MIO MARIA MD 03/24/221728 Reviewed: Reviewed by Me Diagonstic Imaging: Xray Plain Films/CT/US/NM/MRI: ankle Comments [facility] [place] NAME: POWER IBANEZ [facility] REC#: [id number] PT STATUS: REG ER : 1995 PHYSICIAN: GIRMA FERNANDEZ MD ADMIT DATE: 03/24/22/ER FS Signed Date of Exam:03/24/22 ANKLE 3 VIEW RIGHT INDICATION: Right ankle pain. FINDINGS: Three views of the right ankle show no fracture, dislocation or other acute abnormalities. IMPRESSION: Negative right ankle. Dictated by: Dictated on workstation # [id number] Dict: 03/24/221726 Trans: 03/24/221732 AS6 [id number] Interpreted by: ANGEL TORRES MD Electronically signed by: ANGEL TORRES MD 03/24/22 1733 Reviewed: Reviewed by Me Departure Impression Primary Impression: Right ankle sprain Qualified Codes: S93.401A - Sprain of unspecified ligament of right ankle, initial encounter Additional Impressions: Left knee sprain Qualified Codes: S83.92XA - Sprain of unspecified site of left knee, initial encounter Posterior left knee pain Fall Qualified Codes: W19.XXXA - Unspecified fall, initial encounter Vaginal yeast infection Disposition: HOME, SELF-CARE Condition: Stable Departure-Patient Inst. Decision time for Depature: 18:36 Referrals: NAMRATA TURPIN APRN (PCP) Primary Care Physician [facility] (Family) Primary Care Physician Patient Instructions: Preventing Falls ED, Knee Sprain ED, Knee Brace ED, Knee Pain ED, Ankle Sprain ED, Using Cold for Pain Add. Discharge Instructions: Use ibuprofen or Advil 800 mg or 4 of the illy-kdv-unbztti pills every 8 hours as needed for pain and inflammation. Use the knee immobilizer and ankle splint to give support and let your ankle and knee rest. If your symptoms are not improving over the next 3 to 7 days follow- up with work comp as he may need additional testing, physical therapy, referral to a specialist. Use ice 15 to 20 minutes every few hours as needed for pain and swelling All discharge instructions reviewed with patient and/or family. Voiced understanding. Scripts Fluconazole (Fluconazole) 150 Mg Tablet 150 MG PO ONCE for yeast infection for 1 Day, #1 TAB 0 Refills Prov: GIRMA FERNANDEZ MD 03/24/22 Work/School Note: Work Release Form Date Seen in the Emergency Department: Mar 24, 2022 Return to Work: Mar 25, 2022 Restrictions: Follow Up With [facility] Other Restrictions Listed Below: Knee and ankle brace for the next week. If not improving see work comp doc GIRMA FERNANDEZ MD Mar 24, 2022 18:38
[2022-03-24] MEDS ORDERED: FLUCONAZOLE 150 MG TABLET (ED ONLY) PO STA (18:52)
[2022-03-24] MEDS ORDERED: FLUC150T41 PO (18:52)
[2022-03-24 18:59] VITALS: BP 122/63
== END 2022-03-24 18:59 | disposition home or self-care (01) ==
LOC: EDUNIT# 16:38 → ER FS 16:39
DX: S93.402A Sprain of unspecified ligament of left ankle, initial encounter (principal); S93.401A Sprain of unspecified ligament of right ankle, initial encounter; B37.3 Candidiasis of vulva and vagina; W17.2XXA Fall into hole, initial encounter; Y92.59 Other trade areas as the place of occurrence of the external cause; Y99.0 Civilian activity done for income or pay
CPT/HCPCS: 73562; 73610; 99282; L1830; L4350

== ENCOUNTER 2022-04-28 20:51 | Emergency (ER) | payer OTHER ==
[~2022-04-28] VITALS: Ht 160 cm; Wt 74.2 kg
[~2022-04-28 20:51] MED LIST changes: +FLUC150T41 PO
[2022-04-28 20:54] VITALS: BP 134/81
--- NOTE | 2022-04-28 21:07 | ED Lower Extremity ---
General Chief Complaint: Lower Extremity Stated Complaint: R ANKLE PAIN Source: patient Exam Limitations: no limitations History of Present Illness Date Seen by Provider: Apr 28, 2022 Time Seen by Provider: 20:52 Initial Comments 26-year-old female coming in due to right ankle pain. She twisted her ankle several weeks ago and was seen here. X-ray negative for any type of fracture. She twisted again tonight and is having lateral ankle pain. She had an ankle brace that she wore for a while, but she said it did not really help much. Took ibuprofen earlier today which has helped. Pain is moderate, throbbing, worse with movement, better with rest. She is otherwise denying any other acute complaints. She says she has been able to walk on it without difficulty. Allergies and Home Medications Allergies Coded Allergies: cephalexin (Verified Allergy, Unknown, 07/31/17) Patient Home Medication List Home Medication List Reviewed: Yes Aripiprazole (Aripiprazole) 5 Mg Tablet, (Reported) Entered as Reported by: QI ROPER on 11/10/16 235 Fluconazole (Fluconazole) 150 Mg Tablet, 150 MG PO ONCE Prescribed by: GIRMA FERNANDEZ on 03/24/22 1852 Fluoxetine HCl (Fluoxetine HCl) 20 Mg Capsule, (Reported) Entered as Reported by: JANET JACKSON on 12/14/15 0128 Hydroxyzine HCl (Hydroxyzine HCl) 25 Mg Tablet, (Reported) Entered as Reported by: QI ROPER on 11/10/16 2358 Metformin HCl (Metformin HCl ER) 500 Mg Tab.er.24h, (Reported) Entered as Reported by: QI ROPER on 11/10/16 2358 Nitrofurantoin Monohyd/M-Cryst (Macrobid 100 mg Capsule) 100 Mg Capsule, 100 MG PO BID Prescribed by: TOÑITO MCMAHAN on 11/11/16 0101 Prednisone (Prednisone) 20 Mg Tab, 40 MG PO DAILY Prescribed by: GIRMA FERNANDEZ on 03/18/22 2327 Review of Systems Constitutional: No fever EENTM: No blurred vision Respiratory: No cough Cardiovascular: No chest pain Gastrointestinal: No abdominal pain Genitourinary: no symptoms reported Musculoskeletal: joint pain Skin: no symptoms reported Psychiatric/Neurological: No Symptoms Reported All Other Systems Reviewed Negative Unless Noted: Yes Past Friwlmt-Sxrgac-Pxegzy Hx Patient Social History Tobacco Use?: No Immunizations Up To Date Tetanus Booster (TDap): Unknown PED Vaccines UTD: Yes First/Initial COVID19 Vaccinat: UNKNOWN DATE Second COVID19 Vaccination Nathan: UNKNOWN DATE Seasonal Allergies Seasonal Allergies: Yes Past Medical History Surgeries: Yes (LEFT ACL REPAIR, WISDOM TEETH REMOVED) Orthopedic Respiratory: No Cardiac: No Neurological: No Reproductive Disorders: No Female Reproductive Disorders: Denies Sexually Transmitted Disease: No HIV/AIDS: No Gastrointestinal: Yes ("Fatty Liver") Liver Disease/Jaundice Musculoskeletal: No Endocrine: Yes (DX 08/2016) Diabetes, Non-Insulin dep Cancer: No Psychosocial: Yes Anxiety, Suicide Attempts, Depression Integumentary: No Blood Disorders: No Adverse Reaction/Blood Tranf: No Family Medical History Hypertension Physical Exam Vital Signs Capillary Refill : Height, Weight, BMI Height: 5'3" Weight: 180lbs. oz. 81.437580kz; 28.00 BMI Method:Stated General Appearance: WD/WN, no apparent distress HEENT: PERRL/EOMI, normal ENT inspection, pharynx normal Neck: non-tender, full range of motion, supple, normal inspection Cardiovascular: regular rate, rhythm, no edema, no murmur Respiratory: chest non-tender, lungs clear, normal breath sounds, no respiratory distress, no accessory muscle use Gastrointestinal: normal bowel sounds, non tender, soft; No distended, No guarding, No rebound Back: normal inspection, no CVA tenderness Knees: bilateral knee non-tender, bilateral knee normal inspection, bilateral knee normal range of motion, bilateral knee no evidence of injury Ankles: left ankle non-tender; bilateral ankle normal inspection, bilateral ankle normal range of motion; left ankle no evidence of injury; right ankle soft tissue tenderness (Over ATFL and CFL) Feet: bilateral foot non-tender (No pain over base of fifth metatarsal, no Lisfranc tenderness) Neurologic/Tendon: normal sensation, normal motor functions, normal tendon functions Neurologic/Psychiatric: no motor/sensory deficits, alert, normal mood/affect Skin: normal color, warm/dry Lymphatic: no adenopathy Progress/Results/Core Measures Progress Progress Note : Progress Note 26-year-old female with above history coming in due to ankle pain. ABCs were intact and vitals were stable on presentation. She is [place] ankle rule negative, and is only tender over her ATFL and CFL consistent with ankle sprain. She tried the ankle brace before and is not helping, and pain is never really gotten better since the previous sprain. We will try her in a boot for a couple weeks to try to heal, I will recommend physical therapy, and follow-up with orthopedics. Departure Impression Primary Impression: Right ankle sprain Qualified Codes: S93.491A - Sprain of other ligament of right ankle, initial encounter Disposition: HOME, SELF-CARE Condition: Stable Departure-Patient Inst. Decision time for Depature: 21:06 Referrals: NAMRATA TURPIN APRN (PCP) Primary Care Physician [facility] (Family) Primary Care Physician CHAN KIRAN Patient Instructions: Ankle Sprain ED Add. Discharge Instructions: I would wear the boot for 2 weeks to try to get better. Take it off at night, when showering, and also tried to range her ankle to keep it from getting stiff. Take ibuprofen as needed for pain. Also ice it. I recommend following up with Sanjay Kiran who is an ortho specialist here in [facility]. I also recommend calling [facility] for physical therapy. [phone] Work/School Note: Work Release Form Date Seen in the Emergency Department: Apr 28, 2022 Return to Work: Apr 30, 2022 Restrictions: No Restrictions KELSEY STORY MD Apr 28, 2022 21:07
== END 2022-04-28 21:11 | disposition home or self-care (01) ==
LOC: EDUNIT# 20:51 → ER FS 20:52
DX: S93.401A Sprain of unspecified ligament of right ankle, initial encounter (principal); X50.1XXA Overexertion from prolonged static or awkward postures, initial encounter
CPT/HCPCS: 99281